=== PATIENT | female | born 1935 | race Caucasian/White ===

== ENCOUNTER 2017-01-02 00:45 | Inpatient (IN) ==
[2017-01-02] MEDS: PROPOFOL 1,000 MG/100 ML BOTTLE IV SCH ×2 (01:00→16:08)
[2017-01-02] MEDS ORDERED: ETOMIDATE 20 MG/10 ML VIAL IV ONE (01:02)
[2017-01-02] MEDS ORDERED: SUCCINYLCHOLINE 200 MG/10 ML VIAL ONE (01:02)
[2017-01-02] MEDS ORDERED: ETOMIDATE 20 MG/10 ML VIAL IV STA (01:13)
[2017-01-02] MEDS ORDERED: SUCCINYLCHOLINE 200 MG/10 ML VIAL IV STA (01:14)
[2017-01-02] MEDS ORDERED: PROPOFOL 1,000 MG/100 ML BOTTLE IV ONE (01:15)
[2017-01-02] MEDS ORDERED: FUROSEMIDE 100 MG/10 ML VIAL ONE (01:20)
[2017-01-02] MEDS ORDERED: MORPHINE 2 MG/1 ML SYRINGE IV PRN (01:34)
[2017-01-02] MEDS ORDERED: ACETAMINOPHEN 325 MG TABLET PO PRN (01:34)
[2017-01-02] MEDS ORDERED: ONDANSETRON 4 MG/2 ML VIAL IV PRN (01:34)
[2017-01-02] MEDS ORDERED: BISACODYL 5 MG TABLET PO PRN (01:34)
[2017-01-02] MEDS ORDERED: FUROSEMIDE 40 MG/4 ML VIAL IV STA (01:40)
--- NOTE | 2017-01-02 01:43 | Hospitalist History & Physical ---
Assessment and Plan (1) Acute on chronic systolic CHF (congestive heart failure) Status: Acute Current Visit: Yes (2) Acute respiratory failure with hypoxia Status: Acute Current Visit: Yes (3) Chronic atrial fibrillation Status: Acute Current Visit: Yes (4) Acute worsening of stage 3 chronic kidney disease Status: Acute Current Visit: Yes (5) IDDM (insulin dependent diabetes mellitus) Status: Acute Current Visit: Yes (6) Hypothyroidism Status: Acute Assessment and plan: Plan: Admit to ICU, continue ventilatory support Continue diuresis for what appears to be acute on chronic systolic CHF Ultrasound Dopplers of lower extremities (initially outside physician had been concerned about a PE however renal function precluded CAT scan) Monitor renal function closely with diuresis, as outside lab work appears to show worsening of her renal function in setting of chronic kidney disease Continue rate controlling medicines for A. fib as tolerated Continue Eliquis Current Visit: Yes History of Present Illness Chief complaint: [place] transfer, resp failure History of present illness: Ms. Alcala is a 81 year old female with chronic atrial fibrillation, chronic anticoagulation, chronic systolic CHF (EF 20% on echo 08/04/16), insulin- dependent diabetes, hypertension, dementia who was transferred from [facility] this evening due to respiratory decompensation. She required intubation in the emergency room. According to the daughter who is at bedside, and who provides the history, she brought the patient to [facility] on Wednesday due to weakness and persistent nausea vomiting. Apparently the patient had been doing better, however this evening she acutely decompensated in terms of her respiratory status. She became very short of breath. There is no report of chest discomfort. She appears to have bilateral pleural effusions on chest x-ray status post intubation. This is also seen on a CT abdomen pelvis which was obtained for abdominal pain at the outside hospital. Review of the outside paperwork from [facility] appears to show treatment for CHF but also dehydration. Apparently she was receiving IV fluids at the time of transfer. Labs also show acute on chronic kidney disease stage III, elevated lactic acid, negative troponin. Home Medications Medication Instructions Recorded Confirmed Type Amiodarone Tab [Cordarone Tab] 200 mg PO DAILY 08/17/16 01/02/17 History Apixaban [Eliquis] 2.5 mg PO Q12H 08/17/16 01/02/17 History Bimatoprost 0.01% Oph Soln 1 drop BOTH EYES BEDTIME 08/17/16 01/02/17 History [Lumigan] Brinzolamide/Brimonidine Tart 1 drop RIGHT EYE BID 08/17/16 01/02/17 History [Simbrinza] Insulin Glargine [Lantus] 25 unit SUBCUT BEDTIME 08/17/16 01/02/17 History Metoprolol Tartrate 25 mg PO BID 08/17/16 01/02/17 History Pantoprazole Tab [Protonix Tab] 40 mg PO DAILY 08/17/16 01/02/17 History Sitagliptin Phosphate [Januvia] 50 mg PO DAILY 08/17/16 01/02/17 History Spironolactone 25 mg PO DAILY 08/17/16 01/02/17 History Timolol Maleate [Timolol 0.5% Oph 1 drop BOTH EYES QAM 08/17/16 01/02/17 History Soln] Furosemide Tab [Lasix Tab] 40 mg PO DAILY #30 tablet 08/19/16 01/02/17 Rx Levofloxacin Tab [Levaquin Tab] 750 mg PO DAILY #5 tablet 08/19/16 01/02/17 Rx Allergies Allergy/AdvReac Type Severity Reaction Status Date / Time iodine Allergy Unknown/Unable Verified 08/18/16 18:30 to obtain latex Allergy Unknown/Unable Verified 08/18/16 18:30 to obtain Medical,Surgical,& Family Hx - Medical History Cardio: History of: Cardiac Dysrhythmia (Chronic atrial fibrillation), CHF ( Cardiomyopathy, EF 20% on echo 08/04/16), Cardiovascular Problems Neurology: History of: Dementia Endocrine: History of: Diabetes Mellitus (IDDM) Renal: History of: Renal Problems (Chronic kidney disease stage III) Hematology: History of: Hematologic Cancer (she has had 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) - Surgical History Abdominal Surgeries: Surgical HX of: Cholecystectomy Reproductive Surgeries: Surgical HX of;: Hysterectomy - Family History Family History: Reports;: Family Cancer Denies;: Family Heart Disease - Social History Smoking Status: Never smoker Frequency of Alcohol Use: None Type of Drug Use: None Marital Status: Unknown Functional capacity: independent ambulation Review of systems: Unable to obtain due to patient intubated Exam - Constitutional Vitals: Period Temp Pulse Resp BP Sys/Rivero Pulse Ox Last 24 Hr 96.9 F-96.9 F 87-98 14-22 117-131/90-98 92 Exam: EXAM: CONSTITUTIONAL: Chronically ill-appearing, intubated, NAD HEENT: NC, AT, ANCA, EOMI CV: Irregular, distant heart sounds no m/g/r RESP: Coarse bilaterally with scattered rhonchi GI: abd soft, NT, ND, +bowel sounds INTEGUMENTARY: no lesions or rash EXTREMITIES: no c/c/e NEURO: Unable to obtain due to patient intubated PSYCH: Unable to obtain due to patient intubated Results - Labs Lab Results: I have reviewed the past 24 hour labs Labs: Outside labs noted - EKG EKG shows: atrial fibrillation - Diagnostic Findings Procedure: Chest x-ray: image reviewed by me, CT Abdomen and Pelvis: report reviewed by me Quality Measures - VTE Contraindication to Pharmacological VTE Prophylaxis: Already on Theraputic Agent , No Prophylaxis Needed
--- NOTE | 2017-01-02 02:03 | Emergency Department Note ---
Rozina Valenzuela Rolonda, am scribing for, and in the presence of, Lupe Rosas DO 01: 31. IRalph Debra, DO, personally performed the services described in this documentation, ascribed by Marco Handy in my presence, and it is both accurate and complete . Arrival - Arrival Chief Complaint: Shortness of Breath ED Nursing Triage Note: pt transferred from [facility] for chf dehydration elevated liver enzymes for further eval Mode of Arrival: Stretcher Limitations: No Limitations Source: Patient, Old Records Reviewed, RN Notes Reviewed Time Seen by Provider: 01/02/17 00:53 - History of Present Illness HPI Narrative: Pt is a 81 y/o female who was transferred from [facility] to ED for further evaluation CHF and possible sepsis. Pt was admitted to [facility] on December 30, for CHF and mild dehydration in which she was given fluids and CXR that showed small right pleural effusion. Pt c/o SOB but denies any pains. Onset (ago): day(s) Consistency: constant Severity: moderate, severe Severity scale (1-10): 9 Quality: fullness Allergies/Adverse Reactions: Allergies Allergy/AdvReac Type Severity Reaction Status Date / Time iodine Allergy Unknown/Unable Verified 08/18/16 18:30 to obtain latex Allergy Unknown/Unable Verified 08/18/16 18:30 to obtain Home Medications: Home Medications Medication Instructions Recorded Confirmed Type Amiodarone Tab [Cordarone Tab] 200 mg PO DAILY 08/17/16 01/02/17 History Apixaban [Eliquis] 2.5 mg PO Q12H 08/17/16 01/02/17 History Bimatoprost 0.01% Oph Soln 1 drop BOTH EYES BEDTIME 08/17/16 01/02/17 History [Lumigan] Brinzolamide/Brimonidine Tart 1 drop RIGHT EYE BID 08/17/16 01/02/17 History [Simbrinza] Insulin Glargine [Lantus] 25 unit SUBCUT BEDTIME 08/17/16 01/02/17 History Metoprolol Tartrate 25 mg PO BID 08/17/16 01/02/17 History Pantoprazole Tab [Protonix Tab] 40 mg PO DAILY 08/17/16 01/02/17 History Sitagliptin Phosphate [Januvia] 50 mg PO DAILY 08/17/16 01/02/17 History Spironolactone 25 mg PO DAILY 08/17/16 01/02/17 History Timolol Maleate [Timolol 0.5% Oph 1 drop BOTH EYES QAM 08/17/16 01/02/17 History Soln] Furosemide Tab [Lasix Tab] 40 mg PO DAILY #30 tablet 08/19/16 01/02/17 Rx Levofloxacin Tab [Levaquin Tab] 750 mg PO DAILY #5 tablet 08/19/16 01/02/17 Rx Review of System - Review of System 12 point system: reviewed and no additional remarkable complaints except as stated - Review of System Constitutional: Absent: chills, diaphoresis, fever, weakness Respiratory: Present: respiratory distress (SOB) Cardiovascular: Absent: chest pain Gastrointestinal: Absent: abdominal pain, nausea, diarrhea Musculoskeletal: Absent: arm pain, neck pain, upper back pain Skin: Absent: rash Neurological: Absent: headache, paresthesias Medical,Surgical,& Family Hx - Medical History Cardio: History of: Cardiovascular Problems (Cardiomyopathy, EF 20% on echo 08/04) Neurology: History of: Dementia Renal: History of: Renal Problems Hematology: History of: Hematologic Cancer (she has had 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) - Surgical History Abdominal Surgeries: Surgical HX of: Cholecystectomy Reproductive Surgeries: Surgical HX of;: Hysterectomy - Family History Family History: Reports;: Family Cancer Denies;: Family Heart Disease - Social History Smoking Status: Never smoker Frequency of Alcohol Use: None Type of Drug Use: None Exam Vital Signs: Vital Signs Temperature 96.9 F L 01/02/17 00:59 Pulse Rate 98 H 01/02/17 00:59 Respiratory Rate 14 01/02/17 01:15 Blood Pressure 117/98 01/02/17 00:59 O2 Sat by Pulse Oximetry 92 L 01/02/17 00:48 - General General appearance: alert, in distress (moderate-severe) - Head Head exam: Present: atraumatic, normocephalic - Eye Eye exam: Present: PERRL, EOMI - ENT ENT exam: Present: mucous membranes moist. Absent: mucous membranes dry - Neck Neck exam: Present: full ROM. Absent: tenderness - Chest Chest inspection: Present: symmetric chest wall rise. Absent: tenderness - Respiratory Respiratory exam: Present: accessory muscle use (belly breathing), respiratory distress. Absent: normal lung sounds bilaterally (diminished sounds bilaterally ) - Cardiovascular Cardiovascular exam: Present: tachycardia - Abdominal Exam Abdominal exam: Present: soft, normal bowel sounds. Absent: tenderness - Extremities Exam Extremities exam: Present: pedal edema (mild; bilateral lower) - Back Exam Back exam: Present: normal inspection, full ROM. Absent: tenderness - Neurological Exam Neurological exam: Present: alert, oriented X3, CN II-XII intact - Psychiatric Psychiatric exam: Present: normal affect, normal mood - Skin Skin exam: Present: warm, dry Course Course Narrative: pt was in respiratory distress and was subsequently intubated. spoke with hospitalist who will admit pt to the unit Results - Diagnostic Findings Procedure: Chest x-ray: image reviewed by me (et tube in good placement, chf noted. ) Disposition Clinical Impression: CHF (congestive heart failure), Respiratory distress Case discussed with: patient, patient's family Disposition: Still a Patient Condition: Guarded Time of Disposition: 02:03
[2017-01-02 03:02] LABS: ABG Base Excess -14.8 MMOL/L (-2.5-2.5); ABG HCO3 13.5 MMOL/L (20-26); ABG Oxygen Saturation 99.8 % (95-100); ABG PCO2 26.1 MM HG (35-48); ABG PH 7.248 (7.35-7.45); ABG TCO2 10.1 MMOL/L (23-27); Allen Test Positive; Pt O2 Delivery Device Ventilator
[2017-01-02] MEDS ORDERED: VECURONIUM 10 MG VIAL IV ONE (03:31)
[2017-01-02] MEDS ORDERED: GLUCAGON 1 MG VIAL IM PRN (03:43)
[2017-01-02] MEDS: PANTOPRAZOLE 40 MG VIAL IV SCH (03:58)
[2017-01-02 04:39] LABS: Basophils % 0.1 % (0.0-0.8); Hematocrit 27.2 VOL% (35.7-47.0); Hemoglobin 9.1 GM/DL (12.0-16.0); Immature Granulocytes % 2.3 %; Immature Granulocytes Absolute 0.25 #; Lymphocytes # 0.4 10*3/uL (1.4-4.0); Lymphocytes % 3.7 % (21.3-54.2); Mean Corpuscular HGB Conc 33.5 GM/DL (32-36); Mean Corpuscular Hemoglobin 35 PG (27-34); Mean Corpuscular Volume 105.8 FL (87-102); Mean Platelet Volume 12.2 FL (9.6-12.0); Monocytes % 9.2 % (1.7-12.7); NRBC # 0.05 10*3/uL; Neutrophils # 9.4 10*3/uL (1.4-7.4); Neutrophils % 84.7 % (38.7-73.9); Platelet Count 104 T/CUMM (130-400); Red Blood Count 2.57 MC/CUMM (3.8-5.5); Red Cell Distribution Width 15.1 % (9.3-17.3)
[2017-01-02] MEDS ORDERED: VECURONIUM 10 MG VIAL IV STA (05:02)
[2017-01-02 05:44] LABS: Lactic Acid 4.3 MMOL/L (0.4-2.0)
[2017-01-02 05:47] LABS: Lymphocytes 6 % (20-55); Macrocytosis 1+; Platelet Estimate Adequate; Polychromasia 1+; Segmented Neutrophils 86 % (50-85); Total Cells Counted 100
[2017-01-02] MEDS: INSULIN REGULAR 100 UNIT/ML SUBCUT SCH ×3 (06:05→18:46)
[2017-01-02 06:39] LABS: Calcium 10.2 MG/DL (8.5-10.1)
[2017-01-02 06:41] LABS: Albumin 3.3 G/DL (3.4-5.0)
[2017-01-02 07:00] LABS: Bilirubin,Total 3.9 MG/DL (0.2-1.0); Total Protein 5.3 G/DL (6.4-8.3); Troponin I Only 0.04 NG/ML (0.00-0.045)
[2017-01-02 07:10] LABS: Osmolality,Calculated 290.5 MOS/KG (273-304); Potassium 4.1 MMOL/L (3.5-5.1)
[2017-01-02] MEDS: ALBUTEROL/IPRATROPIUM 3 ML NEB RESP TX SCH ×3 (07:25→19:24)
[2017-01-02 07:38] LABS: ABG Base Excess -9.2 MMOL/L (-2.5-2.5); ABG HCO3 17.1 MMOL/L (20-26); ABG PCO2 25.4 MM HG (35-48); ABG PH 7.368 (7.35-7.45); ABG TCO2 12.8 MMOL/L (23-27)
[2017-01-02] MEDS ORDERED: FUROSEMIDE 40 MG/4 ML VIAL IV SCH (08:00)
--- NOTE | 2017-01-02 08:42 | Pulmonology Consult Note ---
Assessment and Plan (1) Cardiomyopathy Status: Acute Assessment and plan: The patient apparently has a nonischemic cardiomyopathy with ejection fraction of 20%. She is now on the ventilator at present. Current Visit: Yes (2) Acute on chronic systolic CHF (congestive heart failure) Status: Acute Assessment and plan: The patient had respiratory distress and is now on the ventilator. Her chest x- ray suggest only mild heart failure Current Visit: Yes (3) Acute respiratory failure with hypoxia Status: Acute Assessment and plan: The patient was apparently in respiratory distress and had to be intubated. Her oxygenation is adequate at present. Current Visit: Yes (4) Acute worsening of stage 3 chronic kidney disease Status: Acute Assessment and plan: The patient's creatinine is up to 3 now Current Visit: Yes (5) Chronic atrial fibrillation Status: Acute Assessment and plan: The patient's heart rate is under fair control. Current Visit: Yes (6) IDDM (insulin dependent diabetes mellitus) Status: Acute Assessment and plan: The patient's glucose was 159 this morning. Current Visit: Yes (7) Dementia Status: Chronic Assessment and plan: Patient reportedly has a history of some dementia. Current Visit: No (8) Hypertension Status: Chronic Assessment and plan: The patient has a hypertensive cardiomyopathy and her blood pressure is doing okay at present. Current Visit: No Qualifiers: Hypertension type: essential hypertension Qualified Code(s): I10 - Essential (primary) hypertension (9) Shock liver Status: Acute Assessment and plan: The patient has markedly elevated liver enzymes and this looks like she may have shock liver. Current Visit: Yes History of Present Illness Chief complaint: Ventilator management History of present illness: Ms. Alcala is a 81 year old white female that apparently has a fairly significant cardiomyopathy with chronic atrial fibrillation along with diabetes , hypertension, mild dementia. She was in respiratory distress and transferred from [facility] because of possible heart failure. She had to be intubated and is now on the ventilator in the ICU. The patient apparently had an echocardiogram in July that showed an ejection fraction of 20%. She has significant systolic dysfunction. She apparently is a former smoker. It is unclear if she has had any problems with COPD. She has been on anticoagulation for atrial fibrillation. She appears stable on the ventilator at present. Home Medications Medication Instructions Recorded Confirmed Type Amiodarone Tab [Cordarone Tab] 200 mg PO DAILY 08/17/16 01/02/17 History Apixaban [Eliquis] 2.5 mg PO Q12H 08/17/16 01/02/17 History Bimatoprost 0.01% Oph Soln 1 drop BOTH EYES BEDTIME 08/17/16 01/02/17 History [Lumigan] Brinzolamide/Brimonidine Tart 1 drop RIGHT EYE BID 08/17/16 01/02/17 History [Simbrinza] Insulin Glargine [Lantus] 25 unit SUBCUT BEDTIME 08/17/16 01/02/17 History Metoprolol Tartrate 25 mg PO BID 08/17/16 01/02/17 History Pantoprazole Tab [Protonix Tab] 40 mg PO DAILY 08/17/16 01/02/17 History Sitagliptin Phosphate [Januvia] 50 mg PO DAILY 08/17/16 01/02/17 History Spironolactone 25 mg PO DAILY 08/17/16 01/02/17 History Timolol Maleate [Timolol 0.5% Oph 1 drop BOTH EYES QAM 08/17/16 01/02/17 History Soln] Furosemide Tab [Lasix Tab] 40 mg PO DAILY #30 tablet 08/19/16 01/02/17 Rx Levofloxacin Tab [Levaquin Tab] 750 mg PO DAILY #5 tablet 08/19/16 01/02/17 Rx Allergies Allergy/AdvReac Type Severity Reaction Status Date / Time iodine Allergy Unknown/Unable Verified 08/18/16 18:30 to obtain latex Allergy Unknown/Unable Verified 08/18/16 18:30 to obtain ROS unobtainable: due to endotracheal tube (She is unable to give any history at present.) Exam (Pulmonay) H&P - Constitutional Vitals: Period Temp Pulse Resp BP Sys/Rivero Pulse Ox Last 24 Hr 96.9 F-97.1 F 85-102 14-22 117-143/72-98 92-100 General appearance: normal weight, no acute distress (She is sedated on the ventilator.) - Head Head exam: Present: normal inspection, normocephalic - Eye Eye exam: Present: EOMI. Absent: scleral icterus Pupils: Present: ANCA - ENT ENT exam: Present: other (ET tube in good position) - Neck Neck exam: Absent: lymphadenopathy, thyromegaly - Respiratory Respiratory exam: Present: rhonchi, other (She does have coarse breath sounds bilaterally) - Cardiovascular Cardiovascular exam: Present: irregular rhythm. Absent: gallop, systolic murmur - GI/Abdominal GI/Abdominal exam: Present: hypoactive bowel sounds, soft. Absent: distended, firm, organomegaly, tenderness - Extremities Exam Extremities exam: Present: edema (She does have some mild edema present). Absent: calf tenderness - Neurological Exam Neurological exam: Present: other (She is sedated on the ventilator at present) - Psychiatric Psychiatric exam: Absent: anxious - Skin Skin exam: Present: warm, dry, other (She does have some bruises on her extremities) Medical,Surgical,& Family Hx - Medical History Cardio: History of: Cardiac Dysrhythmia (Chronic atrial fibrillation), CHF ( Cardiomyopathy, EF 20% on echo 08/04/16), Hypertension, Cardiovascular Problems No history of: RI, Pacemaker Neurology: History of: Dementia Endocrine: History of: Diabetes Mellitus (IDDM), Thyroid Disorder Renal: History of: Renal Problems (Chronic kidney disease stage III) Hematology: History of: Hematologic Cancer (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 Her liver tests are very elevated. - Diagnostic Findings Procedure: Chest x-ray: image reviewed by me, report reviewed by me (Chest x- ray shows mild cardiomegaly, there is some haziness in the left base consistent with pleural fluid) Quality Measures - VTE Contraindication to Pharmacological VTE Prophylaxis: Already on Theraputic Agent , No Prophylaxis Needed
[2017-01-02] MEDS ORDERED: SPIRONOLACTONE 25 MG TABLET PO SCH (09:00)
[2017-01-02] MEDS ORDERED: AMIODARONE 200 MG TABLET PO SCH (09:00)
--- NOTE | 2017-01-02 09:23 | Ultrasound Report ---
Exam: Bilateral lower extremity venous Doppler ultrasound Comparison: None Clinical history: Leg swelling Technique: Duplex scan of the lower extremity veins using B-mode/grayscale scaled imaging and Doppler spectral analysis and color flow. Findings: Major venous structures of the lower extremities demonstrate a normal course and caliber. Normal color-flow study and spectral analysis. There is normal compression and augmentation of bilateral common femoral, superficial femoral and popliteal veins. The proximal bilateral greater saphenous veins appear to be patent. Impression: No evidence to suggest deep venous thrombosis within either lower extremity. Ultrasound images were captured and stored. PROCEDURE INTERPRETED AT [facility] DEPARTMENT OF RADIOLOGY Final Report Signed by: Dr. Anitha Holland
[2017-01-02] MEDS: METOPROLOL TARTRATE 25 MG TABLET PO SCH ×2 (09:35→20:44)
[2017-01-02] MEDS: APIXABAN 2.5 MG TABLET PO SCH ×2 (09:36→20:55)
[2017-01-02] MEDS: TIMOLOL 0.5% OPH SOLN 5 ML BOTTLE BOTH EYES SCH (09:36)
--- NOTE | 2017-01-02 09:47 | XRay Report ---
Exam: XR chest 1V Date: 01/02/2017 12:58 AM Comparison: 12/30/2016 Indication: Endotracheal tube placement Technique:[Portable AP sitting chest] Findings: Stable cardiomegaly with progressive diffuse parenchymal findings and small pleural effusions. The endotracheal tube is in satisfactory position. Osteopenia with degenerative changes and stable mediastinum. Prior cholecystectomy. Impression: Endotracheal tube in satisfactory position. Moderate CHF/pneumonitis with small pleural effusions. PROCEDURE INTERPRETED AT [facility] DEPARTMENT OF RADIOLOGY Final Report Signed by: Dr. Anitha Holland
--- NOTE | 2017-01-02 10:15 | XRay Report ---
Portable chest Date: 01/02/2017 Clinical history: Respiratory failure Comparison: 01/02/2017 Technique: Portable AP sitting chest Findings: Stable cardiomegaly and endotracheal tube. Insertion nasogastric tube seen entering the stomach. Persistent diffuse parenchymal findings which appear minimally improved with smaller pleural effusions. Stable mediastinum and osseous structures. Impression: Endotracheal tube and nasogastric tube in satisfactory position. Improved pulmonary edema/infiltration with smaller pleural effusions. PROCEDURE INTERPRETED AT [facility] DEPARTMENT OF RADIOLOGY Final Report Signed by: Dr. Anitha Holland
--- NOTE | 2017-01-02 10:21 | EKG Report ---
Stationary ECG Study [facility] ER Test Date: 01/02/2017 12:57:18 AM Pat Name: LIZA SO Department: Room: 128 Gender: F Supervisor [employer] Generating: : 1935 Requested by: Lupe Rosas Order Number: [id number] Reading MD: ROBERTO BOWEN Intervals [place] Rate: 88 P: 999 TN: 0 QRS: 119 QRSD: 184 T: -35 QT: 475 QTc: 520 Interpretive Statements ATRIAL FIBRILLATION RIGHT AXIS LEFT BUNDLE BRANCH BLOCK (OLD) Electronically Signed On 01-03-17 10:37:37 CDT by ROBERTO BOWEN [email or web address]
--- NOTE | 2017-01-02 13:14 | Cardiology Consult Note ---
Assessment and Plan (1) Acute respiratory failure with hypoxia Status: Acute Assessment and plan: Ventilator weaning as per pulmonary medicine. The etiology of this is unclear, but she does have a severe cardiomyopathy which likely plays a role. It is noted that the patient is DNR at this time. Current Visit: Yes (2) Acute renal failure superimposed on stage 4 chronic kidney disease Status: Acute Assessment and plan: She has severe renal insufficiency which complicates management considerably. Current Visit: Yes (3) Elevated liver function tests Status: Acute Assessment and plan: She has marked elevation of liver function test. The etiology of this is unclear. Current Visit: Yes (4) Cardiomyopathy Status: Acute Assessment and plan: She has a known severe cardiomyopathy with ejection fraction of around 20%. Continue supportive care for now. Given her severe renal insufficiency, respiratory failure, severe liver function abnormalities, and severe cardiomyopathy, her prognosis is poor. Current Visit: Yes (5) Chronic atrial fibrillation Status: Acute Assessment and plan: Her atrial fibrillation rate appears to be adequately controlled at this time. Current Visit: Yes (6) Hypothyroidism Status: Resolved Current Visit: Yes (7) Diabetes mellitus Status: Chronic Current Visit: No Qualifiers: Diabetes mellitus type: type 2 Chronic kidney disease stage: stage 3 ( moderate) (8) Hypertension Status: Chronic Assessment and plan: This appears to be well controlled. Current Visit: No Qualifiers: Hypertension type: essential hypertension Qualified Code(s): I10 - Essential (primary) hypertension History of Present Illness - Consult Narrative History of present illness: Ms. Alcala is a 81 year old female who has a history of multiple medical problems. She is routinely followed by Dr. Dye. She has a history of atrial fibrillation on chronic anticoagulation, severe cardiomyopathy with ejection fraction of around 20%, as well as moderate mitral regurgitation. She also has severe chronic renal insufficiency, insulin-dependent diabetes, hypertension, and dementia. She was transferred from [facility] overnight with respiratory failure. She apparently had been admitted there on Wednesday due to weakness and persistent nausea and vomiting. Shortly after transfer here she was intubated in the emergency room. At the time I am seeing her she is intubated and sedated I cannot get any history from her. History is obtained from the chart and the nursing staff. The patient appears to be in atrial fibrillation with a controlled ventricular response. Laboratory tests since admission show a significant anemia which is macrocytic suggesting potential B12 or folate deficiency. She also has marked liver function test abnormalities with a bilirubin of 3.9 and marked elevation of transaminases. Her BNP is also 986. Her creatinine is 3.0 with a estimated creatinine clearance of 15 mL/min. Current Medications Acetaminophen (Tylenol Tab) 650 mg PO Q4H PRN PRN Reason: Fever, Headache, Mild Pain Hydrocodone Bitart/Acetaminophen ([place] 5-325) 1 tablet PO Q4H PRN PRN Reason: Pain Mild (1-3) Albuterol/Ipratropium (Duoneb) 3 ml RESP TX RT Q6H [facility]OD[facility] Last Admin: 01/02/17 12:36 Dose: 3 ml Amiodarone HCl (Cordarone Tab) 200 mg PO DAILY [facility] Apixaban (Eliquis) 2.5 mg PO Q12H EL[facility] Last Admin: 01/02/17 09:36 Dose: 2.5 mg Bimatoprost (Lumigan) 1 drop BOTH EYES BEDTIME [facility] Bisacodyl (Dulcolax Tab) 10 mg PO DAILY PRN PRN Reason: Constipation Dextrose/Water (D50) 25 gm IV PRN PRN PRN Reason: Hypoglycemia with IV access Furosemide (Lasix Inj) 40 mg IV BID DIURETIC [facility] Glucagon () 1 mg IM PRN PRN PRN Reason: Hypoglycemia w/o IV access Propofol (Diprivan) 1,000 mg in 100 mls @ 2.041 mls/hr IV TITRATE ELODIA; 5 MCG/KG /MIN PRN Reason: Protocol Last Titration: 01/02/17 03:40 Dose: 15 mcg/kg/min, 6.12 mls/hr Insulin Glargine (Lantus) 25 unit SUBCUT BEDTIME [facility] Insulin Human Regular (Humulin R) 0 unit SUBCUT Q6HR [facility] PRN Reason: Protocol Last Admin: 01/02/17 06:05 Dose: Not Given Iron/Minerals/Multivitamins (Centrum Liquid) 15 ml PO DAILY [facility] Metoprolol Tartrate (Lopressor Tab) 25 mg PO BID [facility] Last Admin: 01/02/17 09:35 Dose: 25 mg Morphine Sulfate () 2 mg IV Q4H PRN PRN Reason: Pain Severe (8-10) Non-Formulary Medication (Brinzolamide/Brimonidine Tart [Simbrinza]) 1 drop RIGHT EYE BID [facility] Ondansetron HCl (Zofran Inj) 4 mg IV Q4H PRN PRN Reason: Nausea Pantoprazole Sodium (Protonix Inj) 40 mg IV Q24H [facility] Last Admin: 01/02/17 03:58 Dose: 40 mg Timolol Maleate (Timoptic 0.5%) 1 drop BOTH EYES QAM [facility] Last Admin: 01/02/17 09:36 Dose: 1 drop CC: Cierra Walker MD - Home Medications and Allergies Home Medications: Home Medications Medication Instructions Recorded Confirmed Type Amiodarone Tab [Cordarone Tab] 200 mg PO DAILY 08/17/16 01/02/17 History Apixaban [Eliquis] 2.5 mg PO Q12H 08/17/16 01/02/17 History Bimatoprost 0.01% Oph Soln 1 drop BOTH EYES BEDTIME 08/17/16 01/02/17 History [Lumigan] Brinzolamide/Brimonidine Tart 1 drop RIGHT EYE BID 08/17/16 01/02/17 History [Simbrinza] Insulin Glargine [Lantus] 25 unit SUBCUT BEDTIME 08/17/16 01/02/17 History Metoprolol Tartrate 25 mg PO BID 08/17/16 01/02/17 History Pantoprazole Tab [Protonix Tab] 40 mg PO DAILY 08/17/16 01/02/17 History Sitagliptin Phosphate [Januvia] 50 mg PO DAILY 08/17/16 01/02/17 History Spironolactone 25 mg PO DAILY 08/17/16 01/02/17 History Timolol Maleate [Timolol 0.5% Oph 1 drop BOTH EYES QAM 08/17/16 01/02/17 History Soln] Furosemide Tab [Lasix Tab] 40 mg PO DAILY #30 tablet 08/19/16 01/02/17 Rx Levofloxacin Tab [Levaquin Tab] 750 mg PO DAILY #5 tablet 08/19/16 01/02/17 Rx Allergies/Adverse Reactions: Allergies Allergy/AdvReac Type Severity Reaction Status Date / Time iodine Allergy Unknown/Unable Verified 08/18/16 18:30 to obtain latex Allergy Unknown/Unable Verified 08/18/16 18:30 to obtain 12 point system: reviewed and no additional remarkable complaints except as stated Medical,Surgical,& Family Hx - Medical History Cardio: History of: Cardiac Dysrhythmia (Chronic atrial fibrillation), CHF ( Cardiomyopathy, EF 20% on echo 08/04/16), Hypertension, Cardiovascular Problems No history of: NE, Pacemaker Neurology: History of: Dementia Endocrine: History of: Diabetes Mellitus (IDDM), Thyroid Disorder Renal: History of: Renal Problems (Chronic kidney disease stage III) Hematology: History of: Hematologic Cancer (she has had 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) - Surgical History Abdominal Surgeries: Surgical HX of: Cholecystectomy Reproductive Surgeries: Surgical HX of;: Hysterectomy - Family History Family History: Reports;: Family Cancer, Family Diabetes, Family Hematology, Family Hypertension Denies;: Family Heart Disease, Family Psychiatric Problems, Family Stroke - Social History Smoking Status: Former smoker Frequency of Alcohol Use: None Type of Drug Use: None Physical Examination Vital Signs Temp Pulse Resp BP Pulse Ox 96.9 F L 87 14 131/90 92 L 01/02/17 00:48 01/02/17 00:48 01/02/17 00:48 01/02/17 00:48 01/02/17 00:48 Other: General: Frail, elderly, chronically ill-appearing intubated and sedated in the CCU HEENT: Normocephalic, atraumatic Neck: Supple Neck, Midline Trachea Cardiac: Irregular Rhythm, 2 to 3/6 systolic murmur, no gallop, no rub Lungs: Coarse breath sounds per the ventilator Neuro: Difficult to assess as the patient is intubated and sedated Abdomen: Soft, Active Bowel Sounds, No Masses, No Pulsations/Bruits Skin: Normal color, no rash Extremities: No Clubbing, No Cyanosis, No Edema, Normal Upper Extr. Pulses Musculoskeletal: No acute abnormality noted Psychiatric: Unable to assess as the patient is intubated and sedated Result/EKG - Labs CBC & BMP: 01/02/17 04:08 01/02/17 04:08 Lab Results: I have reviewed the past 24 hour labs Labs: Laboratory Results - last 24 hr 01/02/17 01/02/17 01/02/17 02:43 04:08 04:08 WBC 11.0 RBC 2.57 L Hgb 9.1 L Hct 27.2 L MCV 105.8 H MCH 35 H MCHC 33.5 RDW 15.1 Plt Count 104 L MPV 12.2 H Neut % (Auto) 84.7 H Lymph % (Auto) 3.7 L Hanson % (Auto) 9.2 Eos % (Auto) 0.0 Baso % (Auto) 0.1 Neut # (Auto) 9.4 H Lymph # (Auto) 0.4 L Hanson # (Auto) 1.0 H Eos # (Auto) 0.0 Baso # (Auto) 0.0 Total Counted 100 Immature Gran % 2.3 Nucleated RBC % 0.5 Immature Gran # 0.25 Segmented Neutrophils 86 H Lymphocytes 6 L Monocytes 8 Nucleated RBCs # 0.05 Platelet Estimate Adequate Polychromasia 1+ Macrocytosis 1+ ABG pH 7.248 L ABG pCO2 26.1 L ABG pO2 384.0 H ABG HCO3 13.5 L ABG Total CO2 10.1 L ABG O2 Saturation 99.8 ABG Base Excess -14.8 L FiO2 100.00 Sodium 139 Potassium 4.1 Chloride 105 Carbon Dioxide 16 L Anion Gap 22.1 H BUN 43 H Creatinine 3.00 H GFR Calculation 15 BUN/Creatinine Ratio 14.00 Glucose 159 H POC Glucose Calculated Osmolality 290.5 Lactic Acid 4.3 H Calcium 10.2 H Magnesium 2.0 Total Bilirubin 3.90 H AST 2074 H ALT 1059 H Alkaline Phosphatase 105 Troponin I 0.040 B-Natriuretic Peptide Total Protein 5.3 L Albumin 3.3 L Globulin 2.0 L Albumin/Globulin Ratio 1.6 01/02/17 01/02/17 01/02/17 04:08 06:02 07:32 WBC RBC Hgb Hct MCV MCH MCHC RDW Plt Count MPV Neut % (Auto) Lymph % (Auto) Hanson % (Auto) Eos % (Auto) Baso % (Auto) Neut # (Auto) Lymph # (Auto) Hanson # (Auto) Eos # (Auto) Baso # (Auto) Total Counted Immature Gran % Nucleated RBC % Immature Gran # Segmented Neutrophils Lymphocytes Monocytes Nucleated RBCs # Platelet Estimate Polychromasia Macrocytosis ABG pH 7.368 ABG pCO2 25.4 L ABG pO2 110.0 H ABG HCO3 17.1 L ABG Total CO2 12.8 L ABG O2 Saturation 98.0 ABG Base Excess -9.2 L FiO2 Sodium Potassium Chloride Carbon Dioxide Anion Gap BUN Creatinine GFR Calculation BUN/Creatinine Ratio Glucose POC Glucose 146 H Calculated Osmolality Lactic Acid Calcium Magnesium Total Bilirubin AST ALT Alkaline Phosphatase Troponin I B-Natriuretic Peptide 986 H Total Protein Albumin Globulin Albumin/Globulin Ratio 01/02/17 11:47 WBC RBC Hgb Hct MCV MCH MCHC RDW Plt Count MPV Neut % (Auto) Lymph % (Auto) Hanson % (Auto) Eos % (Auto) Baso % (Auto) Neut # (Auto) Lymph # (Auto) Hanson # (Auto) Eos # (Auto) Baso # (Auto) Total Counted Immature Gran % Nucleated RBC % Immature Gran # Segmented Neutrophils Lymphocytes Monocytes Nucleated RBCs # Platelet Estimate Polychromasia Macrocytosis ABG pH ABG pCO2 ABG pO2 ABG HCO3 ABG Total CO2 ABG O2 Saturation ABG Base Excess FiO2 Sodium Potassium Chloride Carbon Dioxide Anion Gap BUN Creatinine GFR Calculation BUN/Creatinine Ratio Glucose POC Glucose 207 H Calculated Osmolality Lactic Acid Calcium Magnesium Total Bilirubin AST ALT Alkaline Phosphatase Troponin I B-Natriuretic Peptide Total Protein Albumin Globulin Albumin/Globulin Ratio - EKG EKG results: interpreted by me Quality Measures - VTE Contraindication to Pharmacological VTE Prophylaxis: Already on Theraputic Agent , No Prophylaxis Needed
--- NOTE | 2017-01-02 13:27 | Hospitalist Progress Note ---
Assessment and Plan (1) Acute respiratory failure with hypoxia Status: Acute Assessment and plan: Intubated and Dr. Howell is managing the vent Current Visit: Yes (2) Acute on chronic systolic CHF (congestive heart failure) Status: Acute Assessment and plan: lasix 80 mg IV bid, no coreg for now Current Visit: Yes (3) Chronic atrial fibrillation Status: Acute Assessment and plan: cont amiodarone and eliquis Current Visit: Yes (4) IDDM (insulin dependent diabetes mellitus) Status: Acute Assessment and plan: ISC, cont lantus Current Visit: Yes (5) Cardiomyopathy Status: Acute Assessment and plan: Severe CM with ef of 20%, DNR even though intubated. Current Visit: Yes (6) Shock liver Status: Acute Assessment and plan: Elevated liver enzymes most likely due to shock liver, may be due to hypotensive event Current Visit: Yes (7) Acute renal failure superimposed on stage 4 chronic kidney disease Status: Acute Assessment and plan: start bicarb, monitor on diuretics, abdomen us Current Visit: Yes Hospitalist: Subjective Interval history: patient intubated and sedated, Dr. Howell is managing the vent Exam - Constitutional Vitals: Period Temp Pulse Resp BP Sys/Rivero Pulse Ox Last 24 Hr 96.9 F-97.6 F 83-102 8-22 117-143/63-98 92-100 Exam: Heart Rate-[IRR] Lungs-[bilateral crackles ] GI-[+bs soft, NT] Ext-[extensive edema worse on left leg Neuro sedated and intubated psych agitated General [no acute distress] Results - Labs CBC & BMP: 01/02/17 04:08 01/02/17 04:08 Lab Results: I have reviewed the past 24 hour labs Labs: blood cx no growth - Diagnostic Findings Procedure: Chest x-ray: report reviewed by me (pul edema ), Ultrasound: report reviewed by me (no dvt) Quality Measures - VTE Contraindication to Pharmacological VTE Prophylaxis: Already on Theraputic Agent , No Prophylaxis Needed
[2017-01-02 14:46] LABS: Folate > 24.0 NG/ML (5.4-24.0); Vitamin B12 > 2000 PG/ML (211-911)
--- NOTE | 2017-01-02 14:54 | Ultrasound Report ---
Exam: US abdomen Date: 01/02/2017 1:42 PM Comparison: None Indication: Shock liver with elevated bilirubin Technique:[Multiple real-time scans were obtained of the abdomen. Color flow scans obtained. Ultrasound images were captured and stored.] Findings: Prior cholecystectomy. CBD is normal in size measuring 6 mm. The liver is normal in size with no masses. The spleen has an unremarkable appearance with splenic index of 64. Right kidney measures 92 mm length. Left kidney measures 101 mm in length. Minimal right perinephric fluid. The visualized pancreas and aorta have an unremarkable appearance with color flow documented in the IVC. Portions of the pancreas and aortic bifurcation obscured by bowel gas. Minimal ascites with bilateral pleural effusions. Impression: Status post cholecystectomy. No obvious liver pathology is identified. Prior cholecystectomy with normal-sized CBD. Cortical loss in the kidneys with nonspecific minimal right perinephric fluid. Inhomogeneous echogenicity in the kidneys which represent possible medical renal disease. Minimal ascites and bilateral pleural effusions. Portions of the pancreas and aorta are obscured by bowel gas. The Ultrasound images were captured and stored. PROCEDURE INTERPRETED AT [facility] DEPARTMENT OF RADIOLOGY Final Report Signed by: Dr. Anitha Holland
[2017-01-02] MEDS: SODIUM BICARBONATE 650 MG TABLET PO SCH ×2 (16:04→20:55)
[2017-01-02] MEDS: MULTIVITAMIN LIQUID (CENTRUM) 60 ML BOTTLE PO SCH (16:04)
[2017-01-02] MEDS: FUROSEMIDE 40 MG/4 ML VIAL IV SCH (16:04)
[2017-01-02] MEDS: SIMBRINZA RIGHT EYE SCH ×2 (16:06→20:55)
[2017-01-02] MEDS: BIMATOPROST 0.01% OPH SOLN 2.5 ML BOTTLE BOTH EYES SCH (20:55)
[2017-01-02] MEDS ORDERED: INSULIN GLARGINE 100 UNIT/ML SUBCUT SCH (21:00)
[2017-01-03] MEDS: ALBUTEROL/IPRATROPIUM 3 ML NEB RESP TX SCH ×4 (00:28→19:55)
[2017-01-03] MEDS: INSULIN REGULAR 100 UNIT/ML SUBCUT SCH ×5 (00:50→23:34)
[2017-01-03] MEDS: PROPOFOL 1,000 MG/100 ML BOTTLE IV SCH (01:21)
[2017-01-03 03:15] LABS: ABG Base Excess -2.1 MMOL/L (-2.5-2.5); ABG HCO3 22.7 MMOL/L (20-26); ABG Oxygen Saturation 99.9 % (95-100); ABG PCO2 28.8 MM HG (35-48); ABG PH 7.462 (7.35-7.45); ABG TCO2 18.2 MMOL/L (23-27); Allen Test Positive; Pt O2 Delivery Device Ventilator
[2017-01-03] MEDS: PANTOPRAZOLE 40 MG VIAL IV SCH (03:30)
[2017-01-03 03:40] LABS: Basophils % 0.1 % (0.0-0.8); Hematocrit 35.7 VOL% (35.7-47.0); Hemoglobin 11.9 GM/DL (12.0-16.0); Immature Granulocytes % 0.9 %; Immature Granulocytes Absolute 0.17 #; Lymphocytes # 0.6 10*3/uL (1.4-4.0); Lymphocytes % 3.4 % (21.3-54.2); Mean Corpuscular HGB Conc 33.3 GM/DL (32-36); Mean Corpuscular Hemoglobin 31 PG (27-34); Mean Corpuscular Volume 93.2 FL (87-102); Mean Platelet Volume 11.8 FL (9.6-12.0); Monocytes # 0.7 10*3/uL (0.11-0.8); Monocytes % 3.9 % (1.7-12.7); NRBC # 0.05 10*3/uL; Neutrophils # 16.5 10*3/uL (1.4-7.4); Neutrophils % 91.7 % (38.7-73.9); Platelet Count 166 T/CUMM (130-400); Red Blood Count 3.83 MC/CUMM (3.8-5.5); Red Cell Distribution Width 16.4 % (9.3-17.3); White Blood Count 18.1 T/CUMM (4-12)
[2017-01-03 04:22] LABS: Alanine Aminotransferase 1423 U/L (13-56); Albumin 2.7 G/DL (3.4-5.0); Alkaline Phosphatase 88 U/L (45-117); Aspartate Amino Transferase > 2002 U/L (0-37); Blood Urea Nitrogen 63 MG/DL (7-18); Calcium 9.3 MG/DL (8.5-10.1); Glucose 157 MG/DL (74-106); Osmolality,Calculated 301.3 MOS/KG (273-304); Potassium 3.6 MMOL/L (3.5-5.1); Sodium 141 MMOL/L (136-145); Total Protein 4.3 G/DL (6.4-8.3)
[2017-01-03 05:17] LABS: Band Neutrophils 3 % (0-10); Lymphocytes 3 % (20-55); Segmented Neutrophils 94 % (50-85); Total Cells Counted 100
[2017-01-03 05:18] LABS: Anisocytosis 1+
[2017-01-03 05:19] LABS: Ovalocytes Few; Platelet Estimate Normal
--- NOTE | 2017-01-03 07:52 | Pulmonology Progress Note ---
Pulmonary - PN: Subj Interval history: The patient is an 81-year-old white lady that has a significant cardiomyopathy with chronic atrial fibrillation. She is a diabetic with hypertension and apparently has some dementia. She had respiratory failure and is on the ventilator. She has significant elevation in hepatic enzymes. She is also developed worsening renal failure. She is reasonably stable on the ventilator at present. Her x-ray looks a little better and her oxygenation is okay. Exam (Progress Note) - Constitutional Vitals: Period Temp Pulse Resp BP Sys/Rivero Pulse Ox Last 24 Hr 97.3 F-99.4 F 70-102 8-25 91-135/42-77 99-100 Exam: General appearance: normal weight, no acute distress (She is sedated on the ventilator. She has stable vital signs at present.) - Head Head exam: Present: normal inspection, normocephalic - Eye Eye exam: Present: EOMI. Absent: scleral icterus Pupils: Present: ANCA - ENT ENT exam: Present: other (ET tube in good position) - Neck Neck exam: Absent: lymphadenopathy, thyromegaly - Respiratory Respiratory exam: Present: Her lungs have fairly good breath sounds and she is moving air reasonably well with just minimal rhonchi. - Cardiovascular Cardiovascular exam: Present: irregular rhythm but her heart rate is controlled. Absent: gallop, systolic murmur - GI/Abdominal GI/Abdominal exam: Present: hypoactive bowel sounds, soft. Absent: distended, firm, organomegaly, tenderness - Extremities Exam Extremities exam: Present: edema (She does have some mild edema present). Absent: calf tenderness - Neurological Exam Neurological exam: Present: other (She is sedated on the ventilator at present) - Psychiatric Psychiatric exam: Absent: anxious - Skin Skin exam: Present: warm, dry, other (She does have some bruises on her extremities) Results - Labs CBC & BMP: 01/03/17 02:44 01/03/17 02:44 Labs: The PO2 is 162 with a PCO2 of 28 and a pH of 7.46 - Diagnostic Findings Procedure: Chest x-ray: image reviewed by me, report reviewed by me (Her chest x -ray shows mild cardiomegaly with minimal changes in the bases.) Assessment and Plan (1) Cardiomyopathy Status: Acute Assessment and plan: The patient apparently has a nonischemic cardiomyopathy with ejection fraction of 20%. She is now on the ventilator at present. Her chest x-ray has shown mild CHF but is better. Current Visit: Yes (2) Acute on chronic systolic CHF (congestive heart failure) Status: Acute Assessment and plan: The patient had respiratory distress and is now on the ventilator. Her chest x- ray suggest only mild heart failure. Her oxygenation is stable today. Current Visit: Yes (3) Acute respiratory failure with hypoxia Status: Acute Assessment and plan: The patient was apparently in respiratory distress and had to be intubated. Will adjust her ventilator. Current Visit: Yes (4) Acute worsening of stage 3 chronic kidney disease Status: Acute Assessment and plan: The patient's creatinine is up to 3 now. Creatinine is unchanged so far. Current Visit: Yes (5) Chronic atrial fibrillation Status: Acute Assessment and plan: The patient's heart rate is under fair control. Current Visit: Yes (6) IDDM (insulin dependent diabetes mellitus) Status: Acute Assessment and plan: The patient's glucose was 172 this morning. Current Visit: Yes (7) Dementia Status: Chronic Assessment and plan: Patient reportedly has a history of some dementia. She has mainly been sedated on the ventilator. Current Visit: No (8) Hypertension Status: Chronic Assessment and plan: The patient has a hypertensive cardiomyopathy and her blood pressure is doing okay at present. Current Visit: No Qualifiers: Hypertension type: essential hypertension Qualified Code(s): I10 - Essential (primary) hypertension (9) Shock liver Status: Acute Assessment and plan: The patient has markedly elevated liver enzymes and this looks like she may have shock liver. Her liver enzymes are still very high but her ultrasound looks okay. She does not appear to be tender. Current Visit: Yes
[2017-01-03] MEDS: FUROSEMIDE 40 MG/4 ML VIAL IV SCH ×2 (09:18→15:03)
[2017-01-03] MEDS: SIMBRINZA RIGHT EYE SCH ×2 (09:21→20:05)
[2017-01-03] MEDS: SODIUM BICARBONATE 650 MG TABLET PO SCH ×3 (09:23→20:07)
[2017-01-03] MEDS: METOPROLOL TARTRATE 25 MG TABLET PO SCH ×2 (09:23→20:07)
[2017-01-03] MEDS: MULTIVITAMIN LIQUID (CENTRUM) 60 ML BOTTLE PO SCH (09:23)
[2017-01-03] MEDS: APIXABAN 2.5 MG TABLET PO SCH ×2 (09:23→20:07)
[2017-01-03] MEDS: TIMOLOL 0.5% OPH SOLN 5 ML BOTTLE BOTH EYES SCH (10:17)
--- NOTE | 2017-01-03 10:18 | XRay Report ---
Portable chest Date: 01/03/2017 Clinical history: CHF Comparison: 01/02/2017 Technique: Portable AP sitting chest Findings: Stable cardiomegaly and supportive devices. Calcification in the mitral valve annulus. Progressive diffuse parenchymal findings especially in the lower lung zones with minimally larger small pleural effusions. Stable mediastinum and osseous structures. Impression: Progressive CHF/bilateral pneumonia with increased atelectasis and larger small pleural effusions. The supportive devices are in satisfactory position. PROCEDURE INTERPRETED AT [facility] DEPARTMENT OF RADIOLOGY Final Report Signed by: Dr. Anitha Holland
--- NOTE | 2017-01-03 10:21 | Hospitalist Progress Note ---
Assessment and Plan (1) Acute respiratory failure with hypoxia Status: Acute Assessment and plan: Intubated and Dr. Howell is managing the vent. will add meropenem to cover pneumonia, hospital acquired Current Visit: Yes (2) Acute on chronic systolic CHF (congestive heart failure) Status: Acute Assessment and plan: decrease lasix 40 mg IV bid, cont metoprolol, avoid humberto or arb, ef 20% Current Visit: Yes (3) Chronic atrial fibrillation Status: Acute Assessment and plan: cont amiodarone and eliquis Current Visit: Yes (4) IDDM (insulin dependent diabetes mellitus) Status: Acute Assessment and plan: ISC, BS not controlled increase lantus Current Visit: Yes (5) Cardiomyopathy Status: Acute Assessment and plan: Severe CM with ef of 20%, DNR even though intubated. Current Visit: Yes (6) Shock liver Status: Acute Assessment and plan: Elevated liver enzymes most likely due to shock liver, may be due to hypotensive event, cont to rise, check hepatitis and acetaminophen level Current Visit: Yes (7) Acute renal failure superimposed on stage 4 chronic kidney disease Status: Acute Assessment and plan: cont bicarb, cont to monitor, chronic renal dz on us Current Visit: Yes (8) Leukocytosis Status: Acute Assessment and plan: meropenem, didnt suspect pneumonia, but wbc rising, bc negative, ua Current Visit: Yes Hospitalist: Subjective Interval history: Good urine output, no high tube feeding residual, spoke with son today, Exam - Constitutional Vitals: Period Temp Pulse Resp BP Sys/Rivero Pulse Ox Last 24 Hr 97.3 F-99.4 F 70-112 10-25 91-130/42-72 98-100 Exam: Heart Rate-[IRR] Lungs-[clear but diminished. GI-[+bs soft, NT] Ext-[extensive edema no improvement Neuro sedated and intubated psych agitated when touched General [no acute distress] Results - Labs CBC & BMP: 01/03/17 02:44 01/03/17 02:44 Lab Results: I have reviewed the past 24 hour labs Labs: blood cx times 2 negative - Diagnostic Findings Procedure: Chest x-ray: report reviewed by me (pul edema and atelectasis ), Ultrasound: report reviewed by me (renal echogenicity c/w renal disease ) Quality Measures - VTE Contraindication to Pharmacological VTE Prophylaxis: Already on Theraputic Agent , No Prophylaxis Needed
--- NOTE | 2017-01-03 10:29 | EKG Report ---
Stationary ECG Study [facility] Test Date: 01/03/2017 10:26:50 AM Pat Name: LIZA SO Department: Room: 128 Gender: F [employer] Supervisor: : [id number] Requested by: Cierra Barrett Order Number: [id number] Reading MD: ROBERTO BOWEN Intervals [place] Rate: 101 P: 999 UT: 0 QRS: 87 QRSD: 166 T: 227 QT: 418 QTc: 476 Interpretive Statements ATRIAL FIBRILLATION WITH RAPID VENTRICULAR RESPONSE LEFT BUNDLE BRANCH BLOCK Electronically Signed On 01-04-17 10:20:40 CDT by ROBERTO BOWEN [email or web address]
--- NOTE | 2017-01-03 10:34 | ECHO Report ---
Alee Alcala Exam Date: 01/02/2017 10:51 Referring Physician: Technologist: Brisa Warner Age: 81 Ht (in): 64 Wt (lb): 128 Gender: F Exam Location: [facility] Echo Indications: Chronic A Fib, hypothyroidism, Acute CHF, resp distress, IDDM, vent BP: 122 / 79 HR: 91 Rhythm: Atrial fibrillation Technical Quality: Technically difficult study IMPRESSIONS Severely depressed ejection fraction approximately 15%. Diastolic parameters are incomplete as the patient is in atrial fibrillation. Four-chamber cardiac enlargementMild mitral valve regurgitation, central jet. Tricuspid regurgitation velocities suggest a RVSP of 36 mmHg plus the right atrial pressure. Trace pulmonary valve regurgitation. No pericardial effusion. MEASUREMENTS (Male / Female) Normal Values 2D ECHO LV Diastolic Diameter PLAX 4.6 cm 4.2 - 5.9 / 3.9 - 5.3 cm LV Systolic Diameter PLAX 4.0 cm LV Fractional Shortening PLAX 14.5 % IVS Diastolic Thickness 1.1 cm 0.6 - 1.0 / 0.6 - 0.9 cm LVPW Diastolic Thickness 1.2 cm 0.6 - 1.0 / 0.6 - 0.9 cm RV Internal Dim ED PLAX 1.9 cm Aortic Root Diameter 2.3 cm LA Systolic Diameter LX 4.7 cm 3.0 - 4.0 / 2.7 - 3.8 cm DOPPLER Mitral E to A Ratio 2.4 TR Peak Velocity 299.0 cm/s TR Peak Gradient 35.8 mmHg FINDINGS Left Ventricle Mildly increased left ventricular cavity size. Severely depressed ejection fraction approximately 15%. Diastolic parameters are incomplete as the patient is in atrial fibrillation. Right Ventricle Mildly increased right ventricular size. Right Atrium Moderately increased right atrial size. Left Atrium Moderately increased left atrial size. Mitral Valve Moderate mitral annular calcification. Mild mitral valve regurgitation, central jet. Aortic Valve Mild aortic valve sclerosis without stenosis or regurgitation. Mild aortic valve regurgitation. Tricuspid Valve Morphologically normal tricuspid valve. Moderate tricuspid valve regurgitation. Tricuspid regurgitation velocities suggest a RVSP of 36 mmHg plus the right atrial pressure. Pulmonic Valve Morphologically normal pulmonic valve. Trace pulmonary valve regurgitation. Pericardium No pericardial effusion. Aorta Normal size aortic root and proximal ascending aorta. Patti Cruz (Electronically Signed) Final Date: 03 January 2017 10:33
[2017-01-03] MEDS ORDERED: MEROPENEM 1,000 MG in SODIUM CHLORIDE 0.9% 100 ML IV SCH (10:45)
--- NOTE | 2017-01-03 11:29 | Cardiology Progress Note ---
Assessment and Plan (1) Acute respiratory failure with hypoxia Status: Acute Assessment and plan: Ventilator weaning as per pulmonary medicine. The etiology of this is unclear, but she does have a severe cardiomyopathy which likely plays a role. It is noted that the patient is DNR at this time. Current Visit: Yes (2) Acute renal failure superimposed on stage 4 chronic kidney disease Status: Acute Assessment and plan: She has severe renal insufficiency which complicates management considerably. Current Visit: Yes (3) Elevated liver function tests Status: Acute Assessment and plan: She has marked elevation of liver function test. The etiology of this is unclear. Current Visit: Yes (4) Cardiomyopathy Status: Acute Assessment and plan: She has a known severe cardiomyopathy with ejection fraction of around 20%. Continue supportive care for now. Given her severe renal insufficiency, respiratory failure, severe liver function abnormalities, and severe cardiomyopathy, her prognosis is poor. Current Visit: Yes (5) Chronic atrial fibrillation Status: Acute Assessment and plan: Her atrial fibrillation rate appears to be adequately controlled at this time. Current Visit: Yes (6) Hypothyroidism Status: Resolved Current Visit: Yes (7) Diabetes mellitus Status: Chronic Current Visit: No Qualifiers: Diabetes mellitus type: type 2 Chronic kidney disease stage: stage 3 ( moderate) (8) Hypertension Status: Chronic Assessment and plan: This appears to be well controlled. Current Visit: No Qualifiers: Hypertension type: essential hypertension Qualified Code(s): I10 - Essential (primary) hypertension Cardiology - PN: Subj Interval history: Clinically, there is been little change overnight. The patient remains intubated and sedated in the CCU. Her liver function test abnormalities have continued to climb. Her creatinine is stable at about 3.0. She has a leukocytosis. She remains in atrial fibrillation with a heart rate of around 100. Current Medications Acetaminophen (Tylenol Tab) 650 mg PO Q4H PRN PRN Reason: Fever, Headache, Mild Pain Hydrocodone Bitart/Acetaminophen ([facility] 5-325) 1 tablet PO Q4H PRN PRN Reason: Pain Mild (1-3) Albuterol/Ipratropium (Duoneb) 3 ml RESP TX RT Q6H [facility] Last Admin: 01/03/17 07:35 Dose: 3 ml Amiodarone HCl (Cordarone Tab) 200 mg PO DAILY [facility] Apixaban (Eliquis) 2.5 mg PO Q12H [facility] Last Admin: 01/03/17 09:23 Dose: 2.5 mg Bimatoprost (Lumigan) 1 drop BOTH EYES BEDTIME [facility] Last Admin: 01/02/17 20:55 Dose: 1 drop Bisacodyl (Dulcolax Tab) 10 mg PO DAILY PRN PRN Reason: Constipation Dextrose/Water (D50) 25 gm IV PRN PRN PRN Reason: Hypoglycemia with IV access Furosemide (Lasix Inj) 40 mg IV BID DIURETIC [facility] Glucagon () 1 mg IM PRN PRN PRN Reason: Hypoglycemia w/o IV access Propofol (Diprivan) 1,000 mg in 100 mls @ 2.041 mls/hr IV TITRATE [facility]; 5 MCG/KG /MIN PRN Reason: Protocol Last Admin: 01/03/17 01:21 Dose: 15 mcg/kg/min, 6.12 mls/hr Meropenem 500 mg/ Sodium (Chloride) 100 mls @ 200 mls/hr IV Q12H [facility] Insulin Glargine (Lantus) 32 unit SUBCUT BEDTIME [facility] Insulin Human Regular (Humulin R) 0 unit SUBCUT Q6HR [facility] PRN Reason: Protocol Last Admin: 01/03/17 06:24 Dose: 4 unit Iron/Minerals/Multivitamins (Centrum Liquid) 15 ml PO DAILY [facility] Last Admin: 01/03/17 09:23 Dose: 15 ml Metoprolol Tartrate (Lopressor Tab) 25 mg PO BID [facility] Last Admin: 01/03/17 09:23 Dose: 25 mg Morphine Sulfate () 2 mg IV Q4H PRN PRN Reason: Pain Severe (8-10) Simbrinza ( Brinzolamide/Brimonidine Tart [ Simbrinza] 1 Drop) 1 drop RIGHT EYE BID [facility] Last Admin: 01/03/17 09:21 Dose: 1 drop Ondansetron HCl (Zofran Inj) 4 mg IV Q4H PRN PRN Reason: Nausea Pantoprazole Sodium (Protonix Inj) 40 mg IV Q24H [facility] Last Admin: 01/03/17 03:30 Dose: 40 mg Sodium Bicarbonate () 650 mg PO TID [facility] Last Admin: 01/03/17 09:23 Dose: 650 mg Timolol Maleate (Timoptic 0.5%) 1 drop BOTH EYES QAM [facility] Last Admin: 01/03/17 10:17 Dose: Not Given Exam (Progress Note) - Constitutional Vitals: Period Temp Pulse Resp BP Sys/Rivero Pulse Ox Last 24 Hr 97.3 F-99.4 F 70-112 05-05 91-130/42-79 98-100 Exam: General: Frail, elderly, chronically ill-appearing intubated and sedated in the CCU HEENT: Normocephalic, atraumatic Neck: Supple Neck, Midline Trachea Cardiac: Irregular Rhythm, 2 to 3/6 systolic murmur, no gallop, no rub Lungs: Coarse breath sounds per the ventilator Neuro: Difficult to assess as the patient is intubated and sedated Abdomen: Soft, Active Bowel Sounds, No Masses, No Pulsations/Bruits Skin: Normal color, no rash Extremities: No Clubbing, No Cyanosis, No Edema, Normal Upper Extr. Pulses Musculoskeletal: No acute abnormality noted Psychiatric: Unable to assess as the patient is intubated and sedated Result/EKG - Labs CBC & BMP: 01/03/17 02:44 01/03/17 02:44 Lab Results: I have reviewed the past 24 hour labs Labs: Laboratory Results - last 24 hr 01/02/17 01/02/17 01/02/17 04:08 06:02 11:47 WBC RBC Hgb Hct MCV MCH MCHC RDW Plt Count MPV Neut % (Auto) Lymph % (Auto) [place] % (Auto) Eos % (Auto) Baso % (Auto) Neut # (Auto) Lymph # (Auto) [place] # (Auto) Eos # (Auto) Baso # (Auto) Total Counted Immature Gran % Nucleated RBC % Immature Gran # Segmented Neutrophils Band Neutrophils Lymphocytes Nucleated RBCs # Platelet Estimate Anisocytosis Ovalocytes ABG pH ABG pCO2 ABG pO2 ABG HCO3 ABG Total CO2 ABG O2 Saturation ABG Base Excess FiO2 Sodium Potassium Chloride Carbon Dioxide Anion Gap BUN Creatinine GFR Calculation BUN/Creatinine Ratio Glucose POC Glucose 146 H 207 H Calculated Osmolality Calcium Total Bilirubin AST ALT Alkaline Phosphatase Total Protein Albumin Globulin Albumin/Globulin Ratio Vitamin B12 > 2000 H Folate > 24.0 H 01/02/17 01/02/17 01/03/17 17:47 20:02 00:21 WBC RBC Hgb Hct MCV MCH MCHC RDW Plt Count MPV Neut % (Auto) Lymph % (Auto) [place] % (Auto) Eos % (Auto) Baso % (Auto) Neut # (Auto) Lymph # (Auto) [place] # (Auto) Eos # (Auto) Baso # (Auto) Total Counted Immature Gran % Nucleated RBC % Immature Gran # Segmented Neutrophils Band Neutrophils Lymphocytes Nucleated RBCs # Platelet Estimate Anisocytosis Ovalocytes ABG pH ABG pCO2 ABG pO2 ABG HCO3 ABG Total CO2 ABG O2 Saturation ABG Base Excess FiO2 Sodium Potassium Chloride Carbon Dioxide Anion Gap BUN Creatinine GFR Calculation BUN/Creatinine Ratio Glucose POC Glucose 208 H 196 H 172 H Calculated Osmolality Calcium Total Bilirubin AST ALT Alkaline Phosphatase Total Protein Albumin Globulin Albumin/Globulin Ratio Vitamin B12 Folate 01/03/17 01/03/17 01/03/17 02:44 02:44 03:00 WBC 18.1 H D RBC 3.83 D Hgb 11.9 L D Hct 35.7 MCV 93.2 MCH 31 MCHC 33.3 RDW 16.4 Plt Count 166 D MPV 11.8 Neut % (Auto) 91.7 H Lymph % (Auto) 3.4 L [place] % (Auto) 3.9 Eos % (Auto) 0.0 Baso % (Auto) 0.1 Neut # (Auto) 16.5 H Lymph # (Auto) 0.6 L [place] # (Auto) 0.7 Eos # (Auto) 0.0 Baso # (Auto) 0.0 Total Counted 100 Immature Gran % 0.9 Nucleated RBC % 0.3 Immature Gran # 0.17 Segmented Neutrophils 94 H Band Neutrophils 3 Lymphocytes 3 L Nucleated RBCs # 0.05 Platelet Estimate Normal Anisocytosis 1+ Ovalocytes Few ABG pH 7.462 H ABG pCO2 28.8 L ABG pO2 162.0 H ABG HCO3 22.7 ABG Total CO2 18.2 L ABG O2 Saturation 99.9 ABG Base Excess -2.1 FiO2 60.00 Sodium 141 Potassium 3.6 Chloride 105 Carbon Dioxide 23 Anion Gap 16.6 H BUN 63 H D Creatinine 3.00 H GFR Calculation 15 BUN/Creatinine Ratio 21.00 H Glucose 157 H POC Glucose Calculated Osmolality 301.3 Calcium 9.3 Total Bilirubin 2.20 H AST > 2002 H ALT 1423 H Alkaline Phosphatase 88 Total Protein 4.3 L Albumin 2.7 L Globulin 1.6 L Albumin/Globulin Ratio 1.6 Vitamin B12 Folate 01/03/17 06:15 WBC RBC Hgb Hct MCV MCH MCHC RDW Plt Count MPV Neut % (Auto) Lymph % (Auto) [place] % (Auto) Eos % (Auto) Baso % (Auto) Neut # (Auto) Lymph # (Auto) [place] # (Auto) Eos # (Auto) Baso # (Auto) Total Counted Immature Gran % Nucleated RBC % Immature Gran # Segmented Neutrophils Band Neutrophils Lymphocytes Nucleated RBCs # Platelet Estimate Anisocytosis Ovalocytes ABG pH ABG pCO2 ABG pO2 ABG HCO3 ABG Total CO2 ABG O2 Saturation ABG Base Excess FiO2 Sodium Potassium Chloride Carbon Dioxide Anion Gap BUN Creatinine GFR Calculation BUN/Creatinine Ratio Glucose POC Glucose 212 H Calculated Osmolality Calcium Total Bilirubin AST ALT Alkaline Phosphatase Total Protein Albumin Globulin Albumin/Globulin Ratio Vitamin B12 Folate - EKG EKG results: interpreted by me Quality Measures - VTE Contraindication to Pharmacological VTE Prophylaxis: Already on Theraputic Agent , No Prophylaxis Needed
[2017-01-03 11:52] LABS: PT Patient Result 21.9 SECS
[2017-01-03 12:02] LABS: Salicylate < 2.8 MG/DL (2.8-20)
[2017-01-03] MEDS: MEROPENEM 500 MG in SODIUM CHLORIDE 0.9% 100 ML IV SCH ×2 (12:46→23:20)
[2017-01-03 13:29] LABS: Apearance,Urine Slightly Hazy (Clear); Bacteria,Urine Occasional /HPF (Few); Bilirubin,Urine Negative (Negative); Blood, Urine Large mg/dL (Negative); Calcium Oxalate Crystals,Urine Occasional /HPF (Few); Glucose,Urine (UA) Negative (Negative); Hyaline Casts,Urine 44 /LPF (0-3); Ketones,Urine Negative (Negative); Mucus,Urine Occasional /LPF (Occasional); Nitrite,Urine Negative (Negative); Protein,Urine 100 MG/DL; RBC,Urine 82 /HPF (0-4); Squamous Epithelial Cell,Urine Occasional /HPF (0-10); Urine Color Amber (Yellow); Urine Specific Gravity 1.012 (1.001-1.035); WBC,Urine 3 /HPF (0-6)
[2017-01-03] MEDS: INSULIN GLARGINE 100 UNIT/ML SUBCUT SCH (20:03)
[2017-01-03] MEDS: BIMATOPROST 0.01% OPH SOLN 2.5 ML BOTTLE BOTH EYES SCH (20:05)
[2017-01-04] MEDS: PROPOFOL 1,000 MG/100 ML BOTTLE IV SCH (03:13)
[2017-01-04 03:19] LABS: ABG Base Excess 1.6 MMOL/L (-2.5-2.5); ABG HCO3 24.7 MMOL/L (20-26); ABG Oxygen Saturation 98.5 % (95-100); ABG PCO2 33.9 MM HG (35-48); ABG PO2 132.1 MM HG (80-95); ABG TCO2 25.7 MMOL/L (23-27); Allen Test Positive; Pt O2 Delivery Device Ventilator
[2017-01-04] MEDS: PANTOPRAZOLE 40 MG VIAL IV SCH (03:20)
[2017-01-04] MEDS: ALBUTEROL/IPRATROPIUM 3 ML NEB RESP TX SCH ×4 (03:46→19:47)
[2017-01-04 05:41] LABS: Basophils % 0.2 % (0.0-0.8); Eosinophils % 0.1 % (0.00-10.9); Hematocrit 39.6 VOL% (35.7-47.0); Hemoglobin 13.5 GM/DL (12.0-16.0); Immature Granulocytes % 1.6 %; Immature Granulocytes Absolute 0.27 #; Lymphocytes % 5.9 % (21.3-54.2); Magnesium 2.4 MG/DL (1.8-2.4); Mean Corpuscular HGB Conc 34.1 GM/DL (32-36); Mean Corpuscular Hemoglobin 32 PG (27-34); Mean Corpuscular Volume 93.6 FL (87-102); Mean Platelet Volume 12.3 FL (9.6-12.0); Monocytes # 1.4 10*3/uL (0.11-0.8); Monocytes % 8.1 % (1.7-12.7); NRBC # 0.08 10*3/uL; Neutrophils # 14.2 10*3/uL (1.4-7.4); Neutrophils % 84.1 % (38.7-73.9); Phosphorous 3.3 MG/DL (2.5-4.9); Platelet Count 136 T/CUMM (130-400); Prealbumin 8.3 MG/DL (20-40); Red Blood Count 4.23 MC/CUMM (3.8-5.5); Red Cell Distribution Width 17.2 % (9.3-17.3); White Blood Count 16.9 T/CUMM (4-12)
[2017-01-04] MEDS: INSULIN REGULAR 100 UNIT/ML SUBCUT SCH ×3 (05:55→18:07)
[2017-01-04 06:47] LABS: Hepatitis A Ab IgM Quant 0.13 Index; Hepatitis A Ab IgM Result Negative (Negative); Hepatitis B Core IgM Quant 0.09 Index; Hepatitis B Core IgM Result Negative (Negative); Hepatitis B Surface Ag Quant < 0.10 Index; Hepatitis B Surface Ag Result Negative (Negative); Hepatitis C Virus Ab Quant 0.02 Index; Hepatitis C Virus Ab Result Negative (Negative)
--- NOTE | 2017-01-04 07:38 | Cardiology Progress Note ---
Cardiology - PN: Subj Interval history: Cardiology note 81-year-old woman with cardiomyopathy, chronic atrial fibrillation, and respiratory failure. O2 sat 97 on 40% FiO2 Patient completed 4 hours of CPAP yesterday Telemetry shows atrial fib and the 80s Blood pressure 104/60 Tolerating tube feedings Irregular rhythm soft systolic murmur Decreased breath sounds few rhonchi in the right base Abdomen benign No leg edema White count 16.9 hemoglobin 13.5 hematocrit 39.6 Ammonia level yesterday 88 BNP 96 Impression Respiratory failure Cardiomyopathy EF 20% Chronic atrial fibrillation Acute renal failure superimposed on chronic renal failure Hypertension Insulin diabetes Macrocytic anemia Plan CPAP trials IV antibiotics Eliquis twice daily Exam (Progress Note) - Constitutional Vitals: Period Temp Pulse Resp BP Sys/Rivero Pulse Ox Last 24 Hr 97 F-98.7 F 82-112 12-28 84-128/46-90 97-99 Result/EKG - Labs CBC & BMP: 01/04/17 04:24 01/03/17 02:44 Labs: Laboratory Results - last 24 hr 01/03/17 01/03/17 01/03/17 11:31 11:31 11:31 WBC RBC Hgb Hct MCV MCH MCHC RDW Plt Count MPV Neut % (Auto) Lymph % (Auto) [place] % (Auto) Eos % (Auto) Baso % (Auto) Neut # (Auto) Lymph # (Auto) [place] # (Auto) Eos # (Auto) Baso # (Auto) Immature Gran % Nucleated RBC % Immature Gran # Nucleated RBCs # INR 2.0 PT Patient/Control Mix 21.9 D Circ Anticoag PTT 32.0 ABG pH ABG pCO2 ABG pO2 ABG HCO3 ABG Total CO2 ABG O2 Saturation ABG Base Excess FiO2 POC Glucose Phosphorus Magnesium Ammonia Prealbumin Urine Color Urine Appearance Urine pH Ur Specific [place] Urine Protein Urine Glucose (UA) Urine Ketones Urine Blood Urine Nitrate Urine Bilirubin Urine Urobilinogen Urine Leukocytes Urine RBC Urine WBC Ur Squamous Epith Cells Calcium Oxalate Crystal Urine Bacteria Hyaline Casts Urine Mucus Ur Culture Indicated? Salicylates < 2.8 L Acetaminophen 4.0 L Hepatitis A IgM Ab Negative Hep Bs Antigen Negative Hep B Core IgM Ab Negative Hepatitis C Antibody Negative 01/03/17 01/03/17 01/03/17 11:31 11:54 12:35 WBC RBC Hgb Hct MCV MCH MCHC RDW Plt Count MPV Neut % (Auto) Lymph % (Auto) [place] % (Auto) Eos % (Auto) Baso % (Auto) Neut # (Auto) Lymph # (Auto) [place] # (Auto) Eos # (Auto) Baso # (Auto) Immature Gran % Nucleated RBC % Immature Gran # Nucleated RBCs # INR PT Patient/Control Mix Circ Anticoag PTT ABG pH ABG pCO2 ABG pO2 ABG HCO3 ABG Total CO2 ABG O2 Saturation ABG Base Excess FiO2 POC Glucose 180 H Phosphorus Magnesium Ammonia 88 H Prealbumin Urine Color [place] Urine Appearance Slightly hazy Urine pH 5.0 Ur Specific [place] 1.012 Urine Protein 100 Urine Glucose (UA) Negative Urine Ketones Negative Urine Blood Large Urine Nitrate Negative Urine Bilirubin Negative Urine Urobilinogen 4.0 H Urine Leukocytes Negative Urine RBC 82 Urine WBC 3 Ur Squamous Epith Cells Occasional Calcium Oxalate Crystal Occasional Urine Bacteria Occasional Hyaline Casts 44 Urine Mucus Occasional Ur Culture Indicated? Not indicated Salicylates Acetaminophen Hepatitis A IgM Ab Hep Bs Antigen Hep B Core IgM Ab Hepatitis C Antibody 01/03/17 01/03/17 01/03/17 17:39 19:06 23:27 WBC RBC Hgb Hct MCV MCH MCHC RDW Plt Count MPV Neut % (Auto) Lymph % (Auto) [place] % (Auto) Eos % (Auto) Baso % (Auto) Neut # (Auto) Lymph # (Auto) [place] # (Auto) Eos # (Auto) Baso # (Auto) Immature Gran % Nucleated RBC % Immature Gran # Nucleated RBCs # INR PT Patient/Control Mix Circ Anticoag PTT ABG pH ABG pCO2 ABG pO2 ABG HCO3 ABG Total CO2 ABG O2 Saturation ABG Base Excess FiO2 POC Glucose 131 H 211 H 203 H Phosphorus Magnesium Ammonia Prealbumin Urine Color Urine Appearance Urine pH Ur Specific [place] Urine Protein Urine Glucose (UA) Urine Ketones Urine Blood Urine Nitrate Urine Bilirubin Urine Urobilinogen Urine Leukocytes Urine RBC Urine WBC Ur Squamous Epith Cells Calcium Oxalate Crystal Urine Bacteria Hyaline Casts Urine Mucus Ur Culture Indicated? Salicylates Acetaminophen Hepatitis A IgM Ab Hep Bs Antigen Hep B Core IgM Ab Hepatitis C Antibody 01/04/17 01/04/17 01/04/17 03:00 04:24 04:24 WBC 16.9 H RBC 4.23 Hgb 13.5 Hct 39.6 MCV 93.6 MCH 32 MCHC 34.1 RDW 17.2 Plt Count 136 MPV 12.3 H Neut % (Auto) 84.1 H Lymph % (Auto) 5.9 L [place] % (Auto) 8.1 Eos % (Auto) 0.1 Baso % (Auto) 0.2 Neut # (Auto) 14.2 H Lymph # (Auto) 1.0 L [place] # (Auto) 1.4 H Eos # (Auto) 0.0 Baso # (Auto) 0.0 Immature Gran % 1.6 Nucleated RBC % 0.5 Immature Gran # 0.27 Nucleated RBCs # 0.08 INR PT Patient/Control Mix Circ Anticoag PTT ABG pH 7.480 H ABG pCO2 33.9 L ABG pO2 132.1 H ABG HCO3 24.7 ABG Total CO2 25.7 ABG O2 Saturation 98.5 ABG Base Excess 1.6 FiO2 40.00 POC Glucose Phosphorus 3.3 Magnesium 2.4 Ammonia Prealbumin 8.3 L Urine Color Urine Appearance Urine pH Ur Specific [place] Urine Protein Urine Glucose (UA) Urine Ketones Urine Blood Urine Nitrate Urine Bilirubin Urine Urobilinogen Urine Leukocytes Urine RBC Urine WBC Ur Squamous Epith Cells Calcium Oxalate Crystal Urine Bacteria Hyaline Casts Urine Mucus Ur Culture Indicated? Salicylates Acetaminophen Hepatitis A IgM Ab Hep Bs Antigen Hep B Core IgM Ab Hepatitis C Antibody 01/04/17 05:40 WBC RBC Hgb Hct MCV MCH MCHC RDW Plt Count MPV Neut % (Auto) Lymph % (Auto) [place] % (Auto) Eos % (Auto) Baso % (Auto) Neut # (Auto) Lymph # (Auto) [place] # (Auto) Eos # (Auto) Baso # (Auto) Immature Gran % Nucleated RBC % Immature Gran # Nucleated RBCs # INR PT Patient/Control Mix Circ Anticoag PTT ABG pH ABG pCO2 ABG pO2 ABG HCO3 ABG Total CO2 ABG O2 Saturation ABG Base Excess FiO2 POC Glucose 212 H Phosphorus Magnesium Ammonia Prealbumin Urine Color Urine Appearance Urine pH Ur Specific [place] Urine Protein Urine Glucose (UA) Urine Ketones Urine Blood Urine Nitrate Urine Bilirubin Urine Urobilinogen Urine Leukocytes Urine RBC Urine WBC Ur Squamous Epith Cells Calcium Oxalate Crystal Urine Bacteria Hyaline Casts Urine Mucus Ur Culture Indicated? Salicylates Acetaminophen Hepatitis A IgM Ab Hep Bs Antigen Hep B Core IgM Ab Hepatitis C Antibody Quality Measures - VTE Contraindication to Pharmacological VTE Prophylaxis: Already on Theraputic Agent , No Prophylaxis Needed
[2017-01-04] MEDS: FUROSEMIDE 40 MG/4 ML VIAL IV SCH ×2 (08:09→15:18)
[2017-01-04] MEDS: MULTIVITAMIN LIQUID (CENTRUM) 60 ML BOTTLE PO SCH (08:10)
[2017-01-04] MEDS: TIMOLOL 0.5% OPH SOLN 5 ML BOTTLE BOTH EYES SCH (08:10)
[2017-01-04] MEDS: METOPROLOL TARTRATE 25 MG TABLET PO SCH ×2 (08:11→20:18)
[2017-01-04] MEDS: SODIUM BICARBONATE 650 MG TABLET PO SCH ×3 (08:11→20:18)
[2017-01-04] MEDS: APIXABAN 2.5 MG TABLET PO SCH ×2 (08:11→20:18)
[2017-01-04] MEDS: SIMBRINZA RIGHT EYE SCH ×2 (08:12→20:19)
--- NOTE | 2017-01-04 08:35 | Pulmonology Progress Note ---
Pulmonary - PN: Subj Interval history: The patient is an 81-year-old white lady that has a significant cardiomyopathy with chronic atrial fibrillation. She is a diabetic with hypertension and apparently has some dementia. She had respiratory failure and is on the ventilator. She has significant elevation in hepatic enzymes. She is also developed worsening renal failure. She is reasonably stable on the ventilator at present. Her chest x-ray is improving. She did do CPAP fairly well yesterday. She will respond a little bit more now. Exam (Progress Note) - Constitutional Vitals: Period Temp Pulse Resp BP Sys/Rivero Pulse Ox Last 24 Hr 97 F-98.7 F 82-108 12-28 84-128/46-90 97-99 Exam: General appearance: normal weight, no acute distress (She is responding a little better and is comfortable on the ventilator.) - Head Head exam: Present: normal inspection, normocephalic - Eye Eye exam: Present: EOMI. Absent: scleral icterus Pupils: Present: ANCA - ENT ENT exam: Present: other (ET tube in good position) - Neck Neck exam: Absent: lymphadenopathy, thyromegaly - Respiratory Respiratory exam: Present: Her lungs have fairly good breath sounds and she is moving air reasonably well with just minimal rhonchi. - Cardiovascular Cardiovascular exam: Present: irregular rhythm but her heart rate is controlled. Absent: gallop, systolic murmur - GI/Abdominal GI/Abdominal exam: Present: hypoactive bowel sounds, soft. Absent: distended, firm, organomegaly, tenderness - Extremities Exam Extremities exam: Present: Her legs are not as swollen and nontender. - Neurological Exam Neurological exam: Present: other (She is arousable and comfortable on the ventilator ) - Psychiatric Psychiatric exam: Absent: anxious - Skin Skin exam: Present: warm, dry, other (She does have some bruises on her extremities) Results - Labs CBC & BMP: 01/04/17 04:24 01/03/17 02:44 - Diagnostic Findings Procedure: Chest x-ray: image reviewed by me, report reviewed by me (Chest x- ray looks better with less CHF.) Assessment and Plan (1) Cardiomyopathy Status: Acute Assessment and plan: The patient apparently has a nonischemic cardiomyopathy with ejection fraction of 20%. She is now on the ventilator at present. Her chest x-ray is better and her CHF is improved. Current Visit: Yes (2) Acute on chronic systolic CHF (congestive heart failure) Status: Acute Assessment and plan: The patient had respiratory distress and is now on the ventilator. Her chest x- ray suggest only mild heart failure. Her oxygenation is stable today. Overall she looks better. Current Visit: Yes (3) Acute respiratory failure with hypoxia Status: Acute Assessment and plan: The patient was apparently in respiratory distress and had to be intubated. She is stable on the ventilator and doing CPAP better. Her oxygenation is improved. Current Visit: Yes (4) Acute worsening of stage 3 chronic kidney disease Status: Acute Assessment and plan: The patient's creatinine is up to 3 now. Creatinine is unchanged so far. Her urine output has been stable. Current Visit: Yes (5) Chronic atrial fibrillation Status: Acute Assessment and plan: The patient's heart rate is under fair control. I am holding her amiodarone because of her liver toxicity. Current Visit: Yes (6) IDDM (insulin dependent diabetes mellitus) Status: Acute Assessment and plan: The patient's glucose was 172 this morning. Current Visit: Yes (7) Dementia Status: Chronic Assessment and plan: Patient reportedly has a history of some dementia. She has mainly been sedated on the ventilator. Current Visit: No (8) Hypertension Status: Chronic Assessment and plan: The patient has a hypertensive cardiomyopathy and her blood pressure is doing okay at present. Current Visit: No Qualifiers: Hypertension type: essential hypertension Qualified Code(s): I10 - Essential (primary) hypertension (9) Shock liver Status: Acute Assessment and plan: The patient has markedly elevated liver enzymes and this looks like she may have shock liver. Her liver enzymes are still very high but her ultrasound looks okay. She does not appear to be tender. Will check her labs tomorrow. Current Visit: Yes
[2017-01-04 08:51] LABS: Albumin 2.7 G/DL (3.4-5.0); Bilirubin,Total 1.5 MG/DL (0.2-1.0); Osmolality,Calculated 314.8 MOS/KG (273-304); Potassium 3.6 MMOL/L (3.5-5.1); Total Protein 4.4 G/DL (6.4-8.3)
--- NOTE | 2017-01-04 09:41 | XRay Report ---
Exam: XR chest 1V portable Date: 01/04/2017 4:00 AM Indication: CHF follow-up ventilator Comparison: 01/03/2017 Technical: AP portable Findings: External cardiac leads endotracheal tube and nasogastric tube are present. Cardiomegaly present with low volume effusions and bibasilar atelectasis left greater than right. Arthritic change present over the shoulders. No pneumothorax. ASVD present. Impression: 1. Stable appearance of life support tubing 2. Cardiomegaly with low volume effusions atelectatic change similar to previous study PROCEDURE INTERPRETED AT [facility] DEPARTMENT OF RADIOLOGY Final Report Signed by: Dr. Brett Martínez
[2017-01-04] MEDS: MEROPENEM 500 MG in SODIUM CHLORIDE 0.9% 100 ML IV SCH ×2 (10:12→22:30)
--- NOTE | 2017-01-04 10:18 | Hospitalist Progress Note ---
Assessment and Plan (1) Acute respiratory failure with hypoxia Status: Acute Assessment and plan: 1)acute respiratory failure- now that she is waking and off sedation, proceed with CPAP trials underway. She is on Merrem to cover for potential pneumonia- discuss with Dr Howell- his note does not mention pneumonia. I discussed the case with him re:weaning from vent 2)leukocytosis 3)acute on chronic systolic CHF- BNP now 96 4)chronic afib- amio held because of liver enzyme elevations, rate ok. on dig. 5)ZULAY on CKD- creatinine 2.6, good urine output. 6)IDDM- using SSI 7)code status- DNR. Consider referral to LTAC is not extubated quickly. Current Visit: Yes (2) Dementia Status: Chronic Current Visit: No (3) Chronic atrial fibrillation Status: Acute Current Visit: Yes (4) IDDM (insulin dependent diabetes mellitus) Status: Acute Current Visit: Yes (5) Acute on chronic systolic CHF (congestive heart failure) Status: Acute Current Visit: Yes (6) Shock liver Status: Acute Current Visit: Yes (7) Acute renal failure superimposed on stage 4 chronic kidney disease Status: Acute Current Visit: Yes (8) Leukocytosis Status: Acute Current Visit: Yes Hospitalist: Subjective Interval history: Mrs Alcala has been stable on vent. Did CPAP yesterday, and Dr Howell hopes to extubate her soon. Tolerating tube feeds. UOP good. DNR. She is off sedation and more responsive. Exam - Constitutional Vitals: Period Temp Pulse Resp BP Sys/Rivero Pulse Ox Last 24 Hr 97 F-98.7 F 80-108 12-28 84-128/46-90 97-99 General appearance: no acute distress (startles when touched or spoken to.), over weight - Eye Eye exam: Present: EOMI Pupils: Present: ANCA - Respiratory Respiratory exam: Present: clear to auscultation bilaterally (no wheezes or rales or rhonchi) - Cardiovascular Cardiovascular exam: Present: irregular rhythm (controlled rate) - GI/Abdominal GI/Abdominal exam: Present: normal bowel sounds, soft. Absent: tenderness - Extremities Exam Extremities exam: Absent: edema - Neurological Exam Neurological exam: Present: other (observed to move all 4 extremities, sometimes to command, startles when anyone speaks to her or touches her. ) - Skin Skin exam: Present: warm, dry Results - Labs CBC & BMP: 01/04/17 04:24 01/04/17 06:00 Lab Results: I have reviewed the past 24 hour labs Quality Measures - VTE Contraindication to Pharmacological VTE Prophylaxis: Already on Theraputic Agent , No Prophylaxis Needed
[2017-01-04] MEDS: INSULIN GLARGINE 100 UNIT/ML SUBCUT SCH (20:17)
[2017-01-04] MEDS: BIMATOPROST 0.01% OPH SOLN 2.5 ML BOTTLE BOTH EYES SCH (20:18)
[2017-01-05] MEDS: INSULIN REGULAR 100 UNIT/ML SUBCUT SCH ×5 (00:24→23:57)
[2017-01-05] MEDS: ALBUTEROL/IPRATROPIUM 3 ML NEB RESP TX SCH ×4 (00:24→19:45)
[2017-01-05] MEDS: LORazepam 2 MG/1 ML VIAL IV PRN ×2 (01:55→21:00)
[2017-01-05] MEDS: PANTOPRAZOLE 40 MG VIAL IV SCH (02:35)
[2017-01-05 02:56] LABS: ABG HCO3 30.6 MMOL/L (20-26); ABG Oxygen Saturation 97.8 % (95-100); ABG PCO2 31.8 MM HG (35-48); ABG PH 7.601 (7.35-7.45); ABG PO2 94.5 MM HG (80-95); ABG TCO2 31.6 MMOL/L (23-27); Allen Test Positive; Pt O2 Delivery Device Ventilator
[2017-01-05 04:53] LABS: Basophils % 0.2 % (0.0-0.8); Eosinophils % 0.2 % (0.00-10.9); Hematocrit 37.4 VOL% (35.7-47.0); Hemoglobin 12.3 GM/DL (12.0-16.0); Immature Granulocytes % 1.5 %; Immature Granulocytes Absolute 0.14 #; Mean Corpuscular HGB Conc 32.9 GM/DL (32-36); Mean Corpuscular Hemoglobin 31 PG (27-34); Mean Corpuscular Volume 94.7 FL (87-102); Mean Platelet Volume 11.9 FL (9.6-12.0); Monocytes # 1.1 10*3/uL (0.11-0.8); Monocytes % 11.5 % (1.7-12.7); NRBC # 0.02 10*3/uL; Neutrophils % 75.6 % (38.7-73.9); Platelet Count 125 T/CUMM (130-400); Red Blood Count 3.95 MC/CUMM (3.8-5.5); Red Cell Distribution Width 16.8 % (9.3-17.3); White Blood Count 9.2 T/CUMM (4-12)
[2017-01-05 05:28] LABS: Albumin 2.5 G/DL (3.4-5.0); Bilirubin,Total 1.3 MG/DL (0.2-1.0); Calcium 8.7 MG/DL (8.5-10.1); Osmolality,Calculated 319.3 MOS/KG (273-304); Potassium 3.5 MMOL/L (3.5-5.1); Total Protein 4.2 G/DL (6.4-8.3)
[2017-01-05 05:47] LABS: Calcium 8.8 MG/DL (8.5-10.1); Magnesium 2.5 MG/DL (1.8-2.4); Osmolality,Calculated 315.4 MOS/KG (273-304); Potassium 3.4 MMOL/L (3.5-5.1)
--- NOTE | 2017-01-05 06:59 | XRay Report ---
Exam: XR chest 1V portable Date: 01/05/2017 4:00 AM Indication: CHF follow-up ventilator Comparison: 01/04/2017 Technical: AP portable Findings: Endotracheal tube and nasogastric tube present. Cardiomegaly present. ASVD is present. Low volume effusions are present left greater than right. Mediastinum is intact. No pneumothorax Impression: 1. Stable appearance of life support tubing 2. Cardiomegaly with low volume effusions and atelectatic change similar to previous study PROCEDURE INTERPRETED AT [facility] DEPARTMENT OF RADIOLOGY Final Report Signed by: Dr. Brett Martínez
--- NOTE | 2017-01-05 07:27 | Pulmonology Progress Note ---
Pulmonary - PN: Subj Interval history: The patient is an 81-year-old white lady that has a significant cardiomyopathy with chronic atrial fibrillation. She is a diabetic with hypertension and apparently has some dementia. She had respiratory failure and is on the ventilator. She has significant elevation in hepatic enzymes. She is also developed worsening renal failure. She is reasonably stable on the ventilator at present. Her chest x-ray is improving. The patient had a fairly good night but did require some Ativan for agitation. She is responsive but does not always follow commands. She did some CPAP yesterday and her vital signs are stable. She appears to be hemodynamically stable. Her chest x-ray is much better. Exam (Progress Note) - Constitutional Vitals: Period Temp Pulse Resp BP Sys/Rivero Pulse Ox Last 24 Hr 97.1 F-98.6 F 70-100 12-77 86-114/48-73 92-100 Exam: General appearance: normal weight, no acute distress (She is responding a little better but does not follow commands very well. She is in no distress now. ) - Head Head exam: Present: normal inspection, normocephalic - Eye Eye exam: Present: EOMI. Absent: scleral icterus Pupils: Present: ANCA - ENT ENT exam: Present: other (ET tube in good position) - Neck Neck exam: Absent: lymphadenopathy, thyromegaly - Respiratory Respiratory exam: Present: Her lungs have fairly good breath sounds and she is moving air reasonably well. I do not hear any wheezing in the rhonchi are minimal. - Cardiovascular Cardiovascular exam: Present: irregular rhythm but her heart rate is controlled. Absent: gallop, systolic murmur - GI/Abdominal GI/Abdominal exam: Present: active bowel sounds, soft. Absent: distended, firm , organomegaly, tenderness - Extremities Exam Extremities exam: Present: Her legs are not as swollen and nontender. - Neurological Exam Neurological exam: Present: other (She is arousable and comfortable on the ventilator ) - Psychiatric Psychiatric exam: Absent: anxious - Skin Skin exam: Present: warm, dry, other (She does have some bruises on her extremities) Results - Labs CBC & BMP: 01/05/17 04:34 01/05/17 04:34 Labs: The PO2 is 94 with a PCO2 of 31 and pH of 7.6 - Diagnostic Findings Procedure: Chest x-ray: image reviewed by me, report reviewed by me (Her chest x -ray is fairly clear with minimal changes in the left base.) Assessment and Plan (1) Cardiomyopathy Status: Acute Assessment and plan: The patient apparently has a nonischemic cardiomyopathy with ejection fraction of 20%. She is now on the ventilator at present. Her chest x-ray is better and her CHF is improved. She appears to be hemodynamically stable at present. Current Visit: Yes (2) Acute on chronic systolic CHF (congestive heart failure) Status: Acute Assessment and plan: The patient had respiratory distress and is now on the ventilator. Her chest x- ray is improving and her oxygenation is adequate. Current Visit: Yes (3) Acute respiratory failure with hypoxia Status: Acute Assessment and plan: The patient was apparently in respiratory distress and had to be intubated. She is stable on the ventilator and doing CPAP better. Her oxygenation is improved. Her chest x-ray is clearing. We will try to extubate her as soon as she is more responsive. Current Visit: Yes (4) Acute worsening of stage 3 chronic kidney disease Status: Acute Assessment and plan: The patient's creatinine is improving and is down to 1.9. Current Visit: Yes (5) Chronic atrial fibrillation Status: Acute Assessment and plan: The patient's heart rate is under fair control. I am holding her amiodarone because of her liver toxicity. Current Visit: Yes (6) IDDM (insulin dependent diabetes mellitus) Status: Acute Assessment and plan: The patient's glucose was 143 this morning. Current Visit: Yes (7) Dementia Status: Chronic Assessment and plan: Patient reportedly has a history of some dementia. She is arousable but does not always follow commands. Current Visit: No (8) Hypertension Status: Chronic Assessment and plan: The patient has a hypertensive cardiomyopathy and her blood pressure is doing okay at present. Current Visit: No Qualifiers: Hypertension type: essential hypertension Qualified Code(s): I10 - Essential (primary) hypertension (9) Shock liver Status: Acute Assessment and plan: The patient had very elevated liver enzymes and they are coming down nicely now Current Visit: Yes
--- NOTE | 2017-01-05 07:30 | Cardiology Progress Note ---
Cardiology - PN: Subj Interval history: Cardiology note 81-year-old woman with cardiomyopathy, chronic atrial fibrillation and respiratory failure. She completed stage III of CPAP trials yesterday. Telemetry shows atrial fib controlled rate in the 90s. O2 sat 99 on 40% FiO2 Blood pressure 104/50 Patient is alert and responsive Irregular rhythm no murmur Decreased breath sounds few basilar rhonchi Abdomen soft benign No leg edema Lab data today White count 9.2 hemoglobin 12.3 hematocrit 37.4 Sodium 148 potassium 3.5 chloride 107 CO2 33 BUN 80 creatinine down to 1.90 Glucose 127 magnesium 2.5 Impression Cardiomyopathy EF 20% Chronic atrial fibrillation Respiratory failure Acute renal failure superimposed on chronic renal failure improving creatinine down to 1.90 today Hypertension Diabetes Macrocytic anemia Plan CPAP trials IV antibiotics Eliquis Metoprolol 25 mg twice daily Exam (Progress Note) - Constitutional Vitals: Period Temp Pulse Resp BP Sys/Rivero Pulse Ox Last 24 Hr 97.1 F-98.6 F 70-100 12-77 86-114/48-73 92-100 Result/EKG - Labs CBC & BMP: 01/05/17 04:34 01/05/17 04:34 Labs: Laboratory Results - last 24 hr 01/04/17 01/04/17 01/04/17 06:00 11:25 17:42 WBC RBC Hgb Hct MCV MCH MCHC RDW Plt Count MPV Neut % (Auto) Lymph % (Auto) [place] % (Auto) Eos % (Auto) Baso % (Auto) Neut # (Auto) Lymph # (Auto) [place] # (Auto) Eos # (Auto) Baso # (Auto) Immature Gran % Nucleated RBC % Immature Gran # Nucleated RBCs # ABG pH ABG pCO2 ABG pO2 ABG HCO3 ABG Total CO2 ABG O2 Saturation ABG Base Excess FiO2 Sodium 144 Potassium 3.6 Chloride 106 Carbon Dioxide 29 Anion Gap 12.6 BUN 83 H Creatinine 2.60 H GFR Calculation 18 BUN/Creatinine Ratio 31.00 H Glucose 176 H POC Glucose 172 H 153 H Calculated Osmolality 314.8 H Calcium 9.0 Magnesium Total Bilirubin 1.50 H AST 707 H ALT 1007 H Alkaline Phosphatase 158 H Total Protein 4.4 L Albumin 2.7 L Globulin 1.7 L Albumin/Globulin Ratio 1.5 01/04/17 01/05/17 01/05/17 20:04 00:14 02:48 WBC RBC Hgb Hct MCV MCH MCHC RDW Plt Count MPV Neut % (Auto) Lymph % (Auto) [place] % (Auto) Eos % (Auto) Baso % (Auto) Neut # (Auto) Lymph # (Auto) [place] # (Auto) Eos # (Auto) Baso # (Auto) Immature Gran % Nucleated RBC % Immature Gran # Nucleated RBCs # ABG pH 7.601 H ABG pCO2 31.8 L ABG pO2 94.5 ABG HCO3 30.6 H ABG Total CO2 31.6 H ABG O2 Saturation 97.8 ABG Base Excess 9.0 H FiO2 40.00 Sodium Potassium Chloride Carbon Dioxide Anion Gap BUN Creatinine GFR Calculation BUN/Creatinine Ratio Glucose POC Glucose 192 H 159 H Calculated Osmolality Calcium Magnesium Total Bilirubin AST ALT Alkaline Phosphatase Total Protein Albumin Globulin Albumin/Globulin Ratio 01/05/17 01/05/17 01/05/17 04:34 04:34 04:34 WBC 9.2 D RBC 3.95 Hgb 12.3 Hct 37.4 MCV 94.7 MCH 31 MCHC 32.9 RDW 16.8 Plt Count 125 L MPV 11.9 Neut % (Auto) 75.6 H Lymph % (Auto) 11.0 L Evans % (Auto) 11.5 Eos % (Auto) 0.2 Baso % (Auto) 0.2 Neut # (Auto) 7.0 Lymph # (Auto) 1.0 L Evans # (Auto) 1.1 H Eos # (Auto) 0.0 Baso # (Auto) 0.0 Immature Gran % 1.5 Nucleated RBC % 0.2 Immature Gran # 0.14 Nucleated RBCs # 0.02 ABG pH ABG pCO2 ABG pO2 ABG HCO3 ABG Total CO2 ABG O2 Saturation ABG Base Excess FiO2 Sodium 147 H 148 H Potassium 3.4 L 3.5 Chloride 106 107 Carbon Dioxide 32 33 H Anion Gap 12.4 11.5 BUN 77 H 80 H Creatinine 1.80 H 1.90 H GFR Calculation 28 26 BUN/Creatinine Ratio 42.00 H 42.00 H Glucose 121 H 127 H POC Glucose Calculated Osmolality 315.4 H 319.3 H Calcium 8.8 8.7 Magnesium 2.5 H Total Bilirubin 1.30 H AST 326 H ALT 679 H Alkaline Phosphatase 197 H Total Protein 4.2 L Albumin 2.5 L Globulin 1.7 L Albumin/Globulin Ratio 1.4 06/27/17 06/27/17 05:34 06:15 WBC RBC Hgb Hct MCV MCH MCHC RDW Plt Count MPV Neut % (Auto) Lymph % (Auto) Evans % (Auto) Eos % (Auto) Baso % (Auto) Neut # (Auto) Lymph # (Auto) Evans # (Auto) Eos # (Auto) Baso # (Auto) Immature Gran % Nucleated RBC % Immature Gran # Nucleated RBCs # ABG pH ABG pCO2 ABG pO2 ABG HCO3 ABG Total CO2 ABG O2 Saturation ABG Base Excess FiO2 Sodium Potassium Chloride Carbon Dioxide Anion Gap BUN Creatinine GFR Calculation BUN/Creatinine Ratio Glucose POC Glucose 141 H 143 H Calculated Osmolality Calcium Magnesium Total Bilirubin AST ALT Alkaline Phosphatase Total Protein Albumin Globulin Albumin/Globulin Ratio Quality Measures - VTE Contraindication to Pharmacological VTE Prophylaxis: Already on Theraputic Agent , No Prophylaxis Needed
[2017-01-05] MEDS: SODIUM BICARBONATE 650 MG TABLET PO SCH ×3 (09:09→20:27)
[2017-01-05] MEDS: TIMOLOL 0.5% OPH SOLN 5 ML BOTTLE BOTH EYES SCH (09:09)
[2017-01-05] MEDS: METOPROLOL TARTRATE 25 MG TABLET PO SCH ×2 (09:09→20:27)
[2017-01-05] MEDS: FUROSEMIDE 40 MG/4 ML VIAL IV SCH ×2 (09:09→15:33)
[2017-01-05] MEDS: SIMBRINZA RIGHT EYE SCH ×2 (09:09→20:29)
[2017-01-05] MEDS: APIXABAN 2.5 MG TABLET PO SCH ×2 (09:10→20:27)
[2017-01-05] MEDS: MEROPENEM 500 MG in SODIUM CHLORIDE 0.9% 100 ML IV SCH (10:50)
--- NOTE | 2017-01-05 11:27 | Hospitalist Progress Note ---
Assessment and Plan (1) Acute respiratory failure with hypoxia Status: Acute Assessment and plan: 1)acute respiratory failure- CPAP trials. may extubate today. STop Merrem- no pneumonia on CXR, afebrile, cultures negative. 2)leukocytosis- resolved. 3)acute on chronic systolic CHF- BNP now 96. no pulmonary edema or lower extremity edema. 4)chronic afib- amio held because of liver enzyme elevations, rate ok. on dig. 5)ZULAY on CKD- creatinine down to 1.9 good urine output. 6)IDDM- using SSI 7)code status- DNR. Consider referral to LTAC is not extubated quickly. Current Visit: Yes (2) Dementia Status: Chronic Current Visit: No (3) Chronic atrial fibrillation Status: Acute Current Visit: Yes (4) IDDM (insulin dependent diabetes mellitus) Status: Acute Current Visit: Yes (5) Acute on chronic systolic CHF (congestive heart failure) Status: Acute Current Visit: Yes (6) Shock liver Status: Acute Current Visit: Yes (7) Acute renal failure superimposed on stage 4 chronic kidney disease Status: Acute Current Visit: Yes (8) Leukocytosis Status: Acute Current Visit: Yes Hospitalist: Subjective Interval history: Mrs Alcala is doing well with CPAP this morning and may be extubated today. She has been off Diprivan for a couple of days. She still startles when examined but is cooperative and shakes her head to answer questions. Exam - Constitutional Vitals: Period Temp Pulse Resp BP Sys/Rivero Pulse Ox Last 24 Hr 96.5 F-98.6 F 70-100 12-77 86-114/48-73 96-100 General appearance: no acute distress, over weight - Eye Eye exam: Present: EOMI. Absent: scleral icterus - Respiratory Respiratory exam: Present: clear to auscultation bilaterally - Cardiovascular Cardiovascular exam: Present: irregular rhythm - GI/Abdominal GI/Abdominal exam: Present: normal bowel sounds, soft. Absent: tenderness - Extremities Exam Extremities exam: Absent: edema Results - Labs CBC & BMP: 01/05/17 04:34 01/05/17 04:34 Lab Results: I have reviewed the past 24 hour labs Quality Measures - VTE Contraindication to Pharmacological VTE Prophylaxis: Already on Theraputic Agent , No Prophylaxis Needed
[2017-01-05] MEDS: INSULIN GLARGINE 100 UNIT/ML SUBCUT SCH (20:27)
[2017-01-05] MEDS: BIMATOPROST 0.01% OPH SOLN 2.5 ML BOTTLE BOTH EYES SCH (20:31)
[2017-01-06] MEDS: ALBUTEROL/IPRATROPIUM 3 ML NEB RESP TX SCH ×4 (00:02→19:21)
[2017-01-06] MEDS: PANTOPRAZOLE 40 MG VIAL IV SCH (02:33)
[2017-01-06 04:22] LABS: Basophils % 0.1 % (0.0-0.8); Eosinophils % 0.5 % (0.00-10.9); Hematocrit 40.2 VOL% (35.7-47.0); Hemoglobin 12.9 GM/DL (12.0-16.0); Immature Granulocytes % 2.2 %; Immature Granulocytes Absolute 0.16 #; Lymphocytes % 13.4 % (21.3-54.2); Mean Corpuscular HGB Conc 32.1 GM/DL (32-36); Mean Corpuscular Hemoglobin 32 PG (27-34); Mean Corpuscular Volume 98.5 FL (87-102); Monocytes # 1.2 10*3/uL (0.11-0.8); Monocytes % 15.6 % (1.7-12.7); Neutrophils # 5.1 10*3/uL (1.4-7.4); Neutrophils % 68.2 % (38.7-73.9); Platelet Count 118 T/CUMM (130-400); Red Blood Count 4.08 MC/CUMM (3.8-5.5); Red Cell Distribution Width 17.4 % (9.3-17.3); White Blood Count 7.4 T/CUMM (4-12)
[2017-01-06 04:40] LABS: ABG Base Excess 10.8 MMOL/L (-2.5-2.5); ABG HCO3 34.6 MMOL/L (20-26); ABG Oxygen Saturation 99.6 % (95-100); ABG PH 7.504 (7.35-7.45); ABG TCO2 30.7 MMOL/L (23-27); Allen Test Positive; Pt O2 Delivery Device Ventilator
[2017-01-06 04:50] LABS: Band Neutrophils 2 % (0-10); Eosinophils 1 % (0-10); Lymphocytes 16 % (20-55); Segmented Neutrophils 74 % (50-85); Total Cells Counted 100
[2017-01-06 04:51] LABS: Platelet Estimate Adequate
[2017-01-06 04:56] LABS: Calcium 9.2 MG/DL (8.5-10.1); Magnesium 2.8 MG/DL (1.8-2.4); Potassium 3.9 MMOL/L (3.5-5.1)
[2017-01-06] MEDS: LORazepam 2 MG/1 ML VIAL IV PRN (06:18)
[2017-01-06] MEDS: INSULIN REGULAR 100 UNIT/ML SUBCUT SCH ×3 (06:20→18:24)
--- NOTE | 2017-01-06 07:32 | Cardiology Progress Note ---
Cardiology - PN: Subj Interval history: Cardiology note 81 woman with cardiomyopathy chronic atrial fib and respiratory failure. She completed stage V CPAP trials yesterday. Telemetry shows atrial fib with rate in the 90s. O2 sat is 99 on 40% FiO2 blood pressure 96/50 Irregular rhythm no murmur Abdomen benign Decreased breath sounds few rhonchi in the bases No leg edema Lab data today sodium 150 potassium 3.9 chloride 107 CO2 36 BUN 76 creatinine 1.60 glucose 144 magnesium 2.8 LFTs are improving. Total bili down to 1.30 AST down to 376 ALT down to 679 Impression Chronic atrial fibrillation cardiomyopathy EF 20% Respiratory failure Acute renal failure superimposed on chronic renal failure improving. Creatinine down to 1.60 today Hypertension Diabetes Macrocytic anemia Dementia Plan CPAP trials. Hope to extubate soon IV antibiotics Eliquis 2.5 twice daily Metoprolol 25 mg twice daily Exam (Progress Note) - Constitutional Vitals: Period Temp Pulse Resp BP Sys/Rivero Pulse Ox Last 24 Hr 97.3 F-98.3 F 79-105 8-21 88-111/48-71 97-100 Result/EKG - Labs CBC & BMP: 01/06/17 03:07 01/06/17 03:07 Labs: Laboratory Results - last 24 hr 01/05/17 01/05/17 01/05/17 11:33 18:03 19:40 WBC RBC Hgb Hct MCV MCH MCHC RDW Plt Count MPV Neut % (Auto) Lymph % (Auto) [place] % (Auto) Eos % (Auto) Baso % (Auto) Neut # (Auto) Lymph # (Auto) [place] # (Auto) Eos # (Auto) Baso # (Auto) Total Counted Immature Gran % Nucleated RBC % Immature Gran # Segmented Neutrophils Band Neutrophils Lymphocytes Monocytes Eosinophils Nucleated RBCs # Platelet Estimate ABG pH ABG pCO2 ABG pO2 ABG HCO3 ABG Total CO2 ABG O2 Saturation ABG Base Excess FiO2 Sodium Potassium Chloride Carbon Dioxide Anion Gap BUN Creatinine GFR Calculation BUN/Creatinine Ratio Glucose POC Glucose 170 H 185 H 185 H Calculated Osmolality Calcium Magnesium 01/05/17 01/06/17 01/06/17 23:45 03:07 03:07 WBC 7.4 RBC 4.08 Hgb 12.9 Hct 40.2 MCV 98.5 MCH 32 MCHC 32.1 RDW 17.4 H Plt Count 118 L MPV 12.0 Neut % (Auto) 68.2 Lymph % (Auto) 13.4 L [place] % (Auto) 15.6 H Eos % (Auto) 0.5 Baso % (Auto) 0.1 Neut # (Auto) 5.1 Lymph # (Auto) 1.0 L [place] # (Auto) 1.2 H Eos # (Auto) 0.0 Baso # (Auto) 0.0 Total Counted 100 Immature Gran % 2.2 Nucleated RBC % 0.0 Immature Gran # 0.16 Segmented Neutrophils 74 Band Neutrophils 2 Lymphocytes 16 L Monocytes 7 Eosinophils 1 Nucleated RBCs # 0.00 Platelet Estimate Adequate ABG pH ABG pCO2 ABG pO2 ABG HCO3 ABG Total CO2 ABG O2 Saturation ABG Base Excess FiO2 Sodium 150 H Potassium 3.9 Chloride 107 Carbon Dioxide 36 H Anion Gap 10.9 BUN 76 H Creatinine 1.60 H GFR Calculation 32 BUN/Creatinine Ratio 47.00 H Glucose 124 H POC Glucose 160 H Calculated Osmolality 321.0 H Calcium 9.2 Magnesium 2.8 H 01/06/17 01/06/17 04:16 05:40 WBC RBC Hgb Hct MCV MCH MCHC RDW Plt Count MPV Neut % (Auto) Lymph % (Auto) [place] % (Auto) Eos % (Auto) Baso % (Auto) Neut # (Auto) Lymph # (Auto) [place] # (Auto) Eos # (Auto) Baso # (Auto) Total Counted Immature Gran % Nucleated RBC % Immature Gran # Segmented Neutrophils Band Neutrophils Lymphocytes Monocytes Eosinophils Nucleated RBCs # Platelet Estimate ABG pH 7.504 H ABG pCO2 45.0 ABG pO2 152.0 H ABG HCO3 34.6 H ABG Total CO2 30.7 H ABG O2 Saturation 99.6 ABG Base Excess 10.8 H FiO2 40.00 Sodium Potassium Chloride Carbon Dioxide Anion Gap BUN Creatinine GFR Calculation BUN/Creatinine Ratio Glucose POC Glucose 144 H Calculated Osmolality Calcium Magnesium Quality Measures - VTE Contraindication to Pharmacological VTE Prophylaxis: Already on Theraputic Agent , No Prophylaxis Needed
--- NOTE | 2017-01-06 08:00 | Pulmonology Progress Note ---
Pulmonary - PN: Subj Interval history: The patient is an 81-year-old white lady that has a significant cardiomyopathy with chronic atrial fibrillation. She is a diabetic with hypertension and apparently has some dementia. She had respiratory failure and is on the ventilator. She has significant elevation in hepatic enzymes. She is also developed worsening renal failure. She is reasonably stable on the ventilator at present. Her chest x-ray is improving. The patient continues to improve. She is more alert today. She did well on CPAP yesterday. Her vital signs have been stable. Her oxygenation looks much improved. We will try her off the ventilator today Exam (Progress Note) - Constitutional Vitals: Period Temp Pulse Resp BP Sys/Rivero Pulse Ox Last 24 Hr 97.3 F-98.3 F 79-105 8-21 88-111/48-71 97-100 Exam: General appearance: normal weight, no acute distress (She is more alert and responding better now.) - Head Head exam: Present: normal inspection, normocephalic - Eye Eye exam: Present: EOMI. Absent: scleral icterus Pupils: Present: ANCA - ENT ENT exam: Present: other (ET tube in good position) - Neck Neck exam: Absent: lymphadenopathy, thyromegaly - Respiratory Respiratory exam: Present: Her lungs have fairly good breath sounds and she is moving air reasonably well. Her lungs sound clearer overall. - Cardiovascular Cardiovascular exam: Present: irregular rhythm but her heart rate is controlled. Absent: gallop, systolic murmur - GI/Abdominal GI/Abdominal exam: Present: active bowel sounds, soft. Absent: distended, firm , organomegaly, tenderness - Extremities Exam Extremities exam: Present: Her legs are not as swollen and nontender. - Neurological Exam Neurological exam: Present: other (She is arousable and comfortable on the ventilator ) - Psychiatric Psychiatric exam: Absent: anxious - Skin Skin exam: Present: warm, dry, other (She does have some bruises on her extremities) Results - Labs CBC & BMP: 01/06/17 03:07 01/06/17 03:07 Labs: Her PO2 is 152 with a PCO2 of 45 and a pH of 7.5 Assessment and Plan (1) Cardiomyopathy Status: Acute Assessment and plan: The patient apparently has a nonischemic cardiomyopathy with ejection fraction of 20%. She is now on the ventilator at present. Her chest x-ray is better and her CHF is improved. She appears to be hemodynamically stable at present. She is more responsive and looks like she is doing better today. Current Visit: Yes (2) Acute on chronic systolic CHF (congestive heart failure) Status: Acute Assessment and plan: The patient had respiratory distress and is now on the ventilator. Her chest x- ray is improving and her oxygenation is adequate. Current Visit: Yes (3) Acute respiratory failure with hypoxia Status: Acute Assessment and plan: The patient was apparently in respiratory distress and had to be intubated. She is stable on the ventilator and doing CPAP better. She is completely stage IV over weaning trials. Her oxygenation is much better and she is more alert. Will extubate her today. Current Visit: Yes (4) Acute worsening of stage 3 chronic kidney disease Status: Acute Assessment and plan: The patient's creatinine is improving and is down to 1.6. Current Visit: Yes (5) Chronic atrial fibrillation Status: Acute Assessment and plan: The patient's heart rate is under fair control. Her heart rate and blood pressure have been stable. Current Visit: Yes (6) IDDM (insulin dependent diabetes mellitus) Status: Acute Assessment and plan: The patient's glucose was 144 this morning. Current Visit: Yes (7) Dementia Status: Chronic Assessment and plan: Patient reportedly has a history of some dementia. She is arousable and looks like she may be more alert now. Current Visit: No (8) Hypertension Status: Chronic Assessment and plan: The patient has a hypertensive cardiomyopathy and her blood pressure is doing okay at present. Current Visit: No Qualifiers: Hypertension type: essential hypertension Qualified Code(s): I10 - Essential (primary) hypertension (9) Shock liver Status: Acute Assessment and plan: The patient had very elevated liver enzymes and they are coming down nicely now. Current Visit: Yes
[2017-01-06] MEDS: METOPROLOL TARTRATE 25 MG TABLET PO SCH ×2 (08:09→22:17)
[2017-01-06] MEDS: APIXABAN 2.5 MG TABLET PO SCH ×2 (08:09→22:17)
[2017-01-06] MEDS: FUROSEMIDE 40 MG/4 ML VIAL IV SCH ×2 (08:10→16:50)
[2017-01-06] MEDS: SIMBRINZA RIGHT EYE SCH ×2 (08:12→22:27)
[2017-01-06] MEDS: TIMOLOL 0.5% OPH SOLN 5 ML BOTTLE BOTH EYES SCH (08:12)
--- NOTE | 2017-01-06 12:42 | Hospitalist Progress Note ---
Assessment and Plan (1) Acute respiratory failure with hypoxia Status: Acute Assessment and plan: 1)acute respiratory failure- resolved, extubated. 2)leukocytosis- resolved. 3)acute on chronic systolic CHF- BNP now 96. no pulmonary edema or lower extremity edema. 4)chronic afib- amio held because of liver enzyme elevations, rate ok. on dig. 5)ZULAY on CKD- creatinine down to 1.9 good urine output. 6)IDDM- using SSI 7)code status- DNR. transfer to floor in am. Current Visit: Yes (2) Dementia Status: Chronic Current Visit: No (3) Chronic atrial fibrillation Status: Acute Current Visit: Yes (4) IDDM (insulin dependent diabetes mellitus) Status: Acute Current Visit: Yes (5) Acute on chronic systolic CHF (congestive heart failure) Status: Acute Current Visit: Yes (6) Shock liver Status: Acute Current Visit: Yes (7) Acute renal failure superimposed on stage 4 chronic kidney disease Status: Acute Current Visit: Yes (8) Leukocytosis Status: Acute Current Visit: Yes Hospitalist: Subjective Interval history: Mrs Alcala is extubated this morning and doing well so far. She is calm. She has been asking for water. Exam - Constitutional Vitals: Period Temp Pulse Resp BP Sys/Rivero Pulse Ox Last 24 Hr 97.6 F-98.3 F 79-105 8-21 88-111/50-71 97-100 General appearance: normal weight, no acute distress - Head Head exam: Present: normocephalic, atraumatic - Eye Eye exam: Present: EOMI. Absent: scleral icterus - Respiratory Respiratory exam: Present: clear to auscultation bilaterally - Cardiovascular Cardiovascular exam: Present: irregular rhythm - GI/Abdominal GI/Abdominal exam: Present: normal bowel sounds, soft. Absent: tenderness - Extremities Exam Extremities exam: Absent: edema - Neurological Exam Neurological exam: Absent: oriented X3 (wakes to voice, not trying to talk to me but more talkative with he rnurse this morning.) - Skin Skin exam: Present: warm, dry Results - Labs CBC & BMP: 01/06/17 03:07 01/06/17 03:07 Lab Results: I have reviewed the past 24 hour labs Quality Measures - VTE Contraindication to Pharmacological VTE Prophylaxis: Already on Theraputic Agent , No Prophylaxis Needed
[2017-01-06] MEDS: INSULIN GLARGINE 100 UNIT/ML SUBCUT SCH (22:17)
[2017-01-06] MEDS: BIMATOPROST 0.01% OPH SOLN 2.5 ML BOTTLE BOTH EYES SCH (22:26)
[2017-01-07] MEDS: ALBUTEROL/IPRATROPIUM 3 ML NEB RESP TX SCH ×4 (00:21→18:59)
[2017-01-07] MEDS: INSULIN REGULAR 100 UNIT/ML SUBCUT SCH ×4 (01:51→18:29)
[2017-01-07] MEDS: PANTOPRAZOLE 40 MG VIAL IV SCH (04:03)
[2017-01-07 04:58] LABS: Basophils % 0.5 % (0.0-0.8); Eosinophils # 0.1 10*3/uL (0.0-0.87); Eosinophils % 1.2 % (0.00-10.9); Hematocrit 43.6 VOL% (35.7-47.0); Hemoglobin 13.5 GM/DL (12.0-16.0); Immature Granulocytes % 3.2 %; Immature Granulocytes Absolute 0.27 #; Lymphocytes # 1.1 10*3/uL (1.4-4.0); Lymphocytes % 12.7 % (21.3-54.2); Mean Corpuscular Hemoglobin 31 PG (27-34); Mean Corpuscular Volume 100.9 FL (87-102); Mean Platelet Volume 11.8 FL (9.6-12.0); Monocytes # 1.4 10*3/uL (0.11-0.8); Neutrophils # 5.6 10*3/uL (1.4-7.4); Neutrophils % 66.4 % (38.7-73.9); Platelet Count 110 T/CUMM (130-400); Red Blood Count 4.32 MC/CUMM (3.8-5.5); Red Cell Distribution Width 16.8 % (9.3-17.3); White Blood Count 8.5 T/CUMM (4-12)
[2017-01-07 05:21] LABS: Eosinophils 2 % (0-10); Hypochromasia 1+; Lymphocytes 7 % (20-55); Platelet Estimate Decreased; Segmented Neutrophils 78 % (50-85); Total Cells Counted 100
[2017-01-07 05:28] LABS: Magnesium 2.9 MG/DL (1.8-2.4); Phosphorous 4.5 MG/DL (2.5-4.9)
[2017-01-07 05:29] LABS: Calcium 9.2 MG/DL (8.5-10.1); Osmolality,Calculated 322.6 MOS/KG (273-304)
--- NOTE | 2017-01-07 07:03 | Cardiology Progress Note ---
Cardiology - PN: Subj Interval history: Cardiology note 81-year-old woman with cardiomyopathy, chronic atrial fib and respiratory failure. She was extubated yesterday. O2 sat 99 on 3 L. Telemetry shows atrial fib rate in the 80s. Blood pressure 106/83. Irregular rhythm no murmur Decreased breath sounds weak inspiratory effort few basilar rhonchi Abdomen soft benign No leg edema Lab data today White count 8.5 hemoglobin 13.5 hematocrit 43.6 platelet count 110,000 Sodium 153 potassium 4.0 chloride 107 CO2 40 BUN 69 creatinine 1.60 Impression Chronic atrial fibrillation cardiomyopathy EF 20% Respiratory failure Acute renal failure superimposed on chronic renal failure improving. Creatinine 1.60 today. Hypertension diabetes Macrocytic anemia Dementia Plan IV antibiotics Eliquis 2.5 twice daily Metoprolol 25 mg twice daily Encourage nutrition Exam (Progress Note) - Constitutional Vitals: Period Temp Pulse Resp BP Sys/Rivero Pulse Ox Last 24 Hr 96.9 F-97.7 F 79-102 8-25 92-123/45-85 96-100 Result/EKG - Labs CBC & BMP: 01/07/17 04:36 01/07/17 04:36 Labs: Laboratory Results - last 24 hr 01/05/17 01/05/17 01/06/17 19:40 23:45 05:40 WBC RBC Hgb Hct MCV MCH MCHC RDW Plt Count MPV Neut % (Auto) Lymph % (Auto) [place] % (Auto) Eos % (Auto) Baso % (Auto) Neut # (Auto) Lymph # (Auto) [place] # (Auto) Eos # (Auto) Baso # (Auto) Total Counted Immature Gran % Nucleated RBC % Immature Gran # Segmented Neutrophils Lymphocytes Monocytes Eosinophils Nucleated RBCs # Platelet Estimate Hypochromasia Morphology Comment Sodium Potassium Chloride Carbon Dioxide Anion Gap BUN Creatinine GFR Calculation BUN/Creatinine Ratio Glucose POC Glucose 185 H 160 H 144 H Calculated Osmolality Calcium Phosphorus Magnesium Prealbumin 01/07/17 01/07/17 01/07/17 04:36 04:36 04:36 WBC 8.5 RBC 4.32 Hgb 13.5 Hct 43.6 MCV 100.9 MCH 31 MCHC 31.0 L RDW 16.8 Plt Count 110 L MPV 11.8 Neut % (Auto) 66.4 Lymph % (Auto) 12.7 L [place] % (Auto) 16.0 H Eos % (Auto) 1.2 Baso % (Auto) 0.5 Neut # (Auto) 5.6 Lymph # (Auto) 1.1 L [place] # (Auto) 1.4 H Eos # (Auto) 0.1 Baso # (Auto) 0.0 Total Counted 100 Immature Gran % 3.2 Nucleated RBC % 0.0 Immature Gran # 0.27 Segmented Neutrophils 78 Lymphocytes 7 L Monocytes 13 Eosinophils 2 Nucleated RBCs # 0.00 Platelet Estimate Decreased Hypochromasia 1+ Morphology Comment Sodium 153 H Potassium 4.0 Chloride 107 Carbon Dioxide 40 H Anion Gap 10.0 BUN 69 H Creatinine 1.60 H GFR Calculation 31 BUN/Creatinine Ratio 43.00 H Glucose 92 POC Glucose Calculated Osmolality 322.6 H Calcium 9.2 Phosphorus 4.5 Magnesium 2.9 H 3.0 H Prealbumin 17.0 L Quality Measures - VTE Contraindication to Pharmacological VTE Prophylaxis: Already on Theraputic Agent , No Prophylaxis Needed
--- NOTE | 2017-01-07 07:44 | Pulmonology Progress Note ---
Pulmonary - PN: Subj Interval history: The patient is an 81-year-old white lady that has a significant cardiomyopathy with chronic atrial fibrillation. She is a diabetic with hypertension and apparently has some dementia. She had respiratory failure and was on the ventilator. She has significant elevation in hepatic enzymes. She is also developed worsening renal failure. She has continued to do better and yesterday she was extubated. She has done fairly well off the ventilator and is breathing comfortably. She is very weak and not moving around that much. She is responding and has done well with liquids. Overall she is looking better. Exam (Progress Note) - Constitutional Vitals: Period Temp Pulse Resp BP Sys/Rivero Pulse Ox Last 24 Hr 96.9 F-97.7 F 79-102 11-25 100-123/57-85 96-100 Exam: General appearance: normal weight, no acute distress (She is more alert and talking some and looks better.) - Head Head exam: Present: normal inspection, normocephalic - Eye Eye exam: Present: EOMI. Absent: scleral icterus Pupils: Present: ANCA - ENT ENT exam: Present: Unremarkable - Neck Neck exam: Absent: lymphadenopathy, thyromegaly - Respiratory Respiratory exam: Present: Her lungs have fairly good breath sounds and she has only minimal rhonchi. She does have a weak cough. - Cardiovascular Cardiovascular exam: Present: irregular rhythm but her heart rate is controlled. Absent: gallop, systolic murmur - GI/Abdominal GI/Abdominal exam: Present: active bowel sounds, soft. Absent: distended, firm , organomegaly, tenderness - Extremities Exam Extremities exam: Present: Her legs are not as swollen and nontender. - Neurological Exam Neurological exam: Present: other (She is awake and moving around and talking a little better.) - Psychiatric Psychiatric exam: Absent: anxious - Skin Skin exam: Present: warm, dry, other (She does have some bruises on her extremities) Results - Labs CBC & BMP: 01/07/17 04:36 01/07/17 04:36 Assessment and Plan (1) Cardiomyopathy Status: Acute Assessment and plan: The patient apparently has a nonischemic cardiomyopathy with ejection fraction of 20%. She had heart failure along with respiratory failure. She had renal insufficiency and shock liver that has improved. She is now off the ventilator and doing better. She is talking some is comfortable although she is very weak. Current Visit: Yes (2) Acute on chronic systolic CHF (congestive heart failure) Status: Acute Assessment and plan: The patient was on the ventilator with respiratory failure but is doing better now. Her CHF has improved. Current Visit: Yes (3) Acute respiratory failure with hypoxia Status: Acute Assessment and plan: The patient had respiratory failure that is improved. She is doing well off the ventilator. She does not appear to be in distress now. Current Visit: Yes (4) Acute worsening of stage 3 chronic kidney disease Status: Acute Assessment and plan: The patient's creatinine is improving and is down to 1.6. Current Visit: Yes (5) Chronic atrial fibrillation Status: Acute Assessment and plan: The patient's heart rate is under fair control. Her heart rate and blood pressure have been stable. Current Visit: Yes (6) IDDM (insulin dependent diabetes mellitus) Status: Acute Assessment and plan: The patient's glucose was 92 this morning. Current Visit: Yes (7) Dementia Status: Chronic Assessment and plan: Patient reportedly has a history of some dementia. She is talking and alert although she is very weak. Current Visit: No (8) Hypertension Status: Chronic Assessment and plan: The patient has a hypertensive cardiomyopathy and her blood pressure is doing okay at present. She appears to be hemodynamically stable. Current Visit: No Qualifiers: Hypertension type: essential hypertension Qualified Code(s): I10 - Essential (primary) hypertension (9) Shock liver Status: Acute Assessment and plan: The patient had very elevated liver enzymes and they are coming down nicely now. Overall she continues to improve Current Visit: Yes
[2017-01-07] MEDS: APIXABAN 2.5 MG TABLET PO SCH ×2 (09:33→20:58)
[2017-01-07] MEDS: METOPROLOL TARTRATE 25 MG TABLET PO SCH (09:33)
[2017-01-07] MEDS: FUROSEMIDE 40 MG/4 ML VIAL IV SCH (09:33)
[2017-01-07] MEDS: TIMOLOL 0.5% OPH SOLN 5 ML BOTTLE BOTH EYES SCH (09:34)
[2017-01-07] MEDS: SIMBRINZA RIGHT EYE SCH ×2 (09:41→21:00)
--- NOTE | 2017-01-07 11:01 | Hospitalist Progress Note ---
Assessment and Plan (1) Acute respiratory failure with hypoxia Status: Acute Assessment and plan: 1)acute respiratory failure- resolved, extubated. 2)acute on chronic systolic CHF- BNP now 96. no pulmonary edema or lower extremity edema. change lasix to 40mg IV dailiy and consider change to oral tomorrow if she does well. EF 20%. 3)chronic afib- amio held because of liver enzyme elevations, rate ok. on dig. anticoagulated with Eliquis. 4)ZULAY on CKD- creatinine down to 1.6- this is her baseline- acute renal failure resolved. 5)IDDM- using SSI 6)code status- DNR. transfer to floor. Current Visit: Yes (2) Dementia Status: Chronic Current Visit: No (3) Chronic atrial fibrillation Status: Acute Current Visit: Yes (4) IDDM (insulin dependent diabetes mellitus) Status: Acute Current Visit: Yes (5) Acute on chronic systolic CHF (congestive heart failure) Status: Acute Current Visit: Yes (6) Shock liver Status: Acute Current Visit: Yes (7) Acute renal failure superimposed on stage 4 chronic kidney disease Status: Acute Current Visit: Yes (8) Leukocytosis Status: Acute Current Visit: Yes Hospitalist: Subjective Interval history: Mrs Alcala has remained stable off vent since extubation yesterday morning. She is eating a pureed diet as recommended by speech therapy. She denies shortness of breath or pain. Exam - Constitutional Vitals: Period Temp Pulse Resp BP Sys/Rivero Pulse Ox Last 24 Hr 96.9 F-97.7 F 79-99 15-25 100-123/57-85 96-100 General appearance: normal weight, no acute distress - Head Head exam: Present: normocephalic, atraumatic - Eye Eye exam: Present: EOMI. Absent: scleral icterus - Respiratory Respiratory exam: Present: rhonchi (few). Absent: rales, wheezes - Cardiovascular Cardiovascular exam: Present: irregular rhythm. Absent: systolic murmur - GI/Abdominal GI/Abdominal exam: Present: normal bowel sounds, soft. Absent: tenderness - Extremities Exam Extremities exam: Absent: edema - Neurological Exam Neurological exam: Present: alert. Absent: oriented X3 (answers social questions) - Skin Skin exam: Present: warm, dry Results - Labs CBC & BMP: 01/07/17 04:36 01/07/17 04:36 Lab Results: I have reviewed the past 24 hour labs Quality Measures - VTE Contraindication to Pharmacological VTE Prophylaxis: Already on Theraputic Agent , No Prophylaxis Needed
[2017-01-07] MEDS ORDERED: SODIUM CHLORIDE 0.9% 250 ML IV ONE (12:55)
[2017-01-07] MEDS: DESITIN 4OZ/NYSTATIN 15 GRAM MIXTURE PASTE TOP SCH ×2 (15:54→21:07)
[2017-01-07] MEDS: INSULIN GLARGINE 100 UNIT/ML SUBCUT SCH (20:58)
[2017-01-07] MEDS: BIMATOPROST 0.01% OPH SOLN 2.5 ML BOTTLE BOTH EYES SCH (20:59)
[2017-01-08] MEDS: ALBUTEROL/IPRATROPIUM 3 ML NEB RESP TX SCH ×4 (00:22→19:55)
[2017-01-08] MEDS: INSULIN REGULAR 100 UNIT/ML SUBCUT SCH ×4 (02:39→18:02)
[2017-01-08] MEDS: PANTOPRAZOLE 40 MG VIAL IV SCH (04:06)
[2017-01-08 04:47] LABS: Basophils % 0.4 % (0.0-0.8); Eosinophils # 0.5 10*3/uL (0.0-0.87); Eosinophils % 5.2 % (0.00-10.9); Hematocrit 41.2 VOL% (35.7-47.0); Hemoglobin 13.1 GM/DL (12.0-16.0); Immature Granulocytes % 2.4 %; Immature Granulocytes Absolute 0.21 #; Lymphocytes # 1.4 10*3/uL (1.4-4.0); Lymphocytes % 15.6 % (21.3-54.2); Mean Corpuscular HGB Conc 31.8 GM/DL (32-36); Mean Corpuscular Hemoglobin 31 PG (27-34); Mean Corpuscular Volume 97.4 FL (87-102); Mean Platelet Volume 12.7 FL (9.6-12.0); Monocytes % 11.1 % (1.7-12.7); Neutrophils # 5.8 10*3/uL (1.4-7.4); Neutrophils % 65.3 % (38.7-73.9); Platelet Count 107 T/CUMM (130-400); Red Blood Count 4.23 MC/CUMM (3.8-5.5); Red Cell Distribution Width 15.8 % (9.3-17.3); White Blood Count 8.9 T/CUMM (4-12)
[2017-01-08 05:23] LABS: Calcium 9.1 MG/DL (8.5-10.1); Magnesium 2.6 MG/DL (1.8-2.4); Potassium 3.4 MMOL/L (3.5-5.1)
[2017-01-08] MEDS: DEXTROSE 50% 25 GM/50 ML VIAL IV PRN (06:09)
--- NOTE | 2017-01-08 06:19 | XRay Report ---
Exam: XR chest 1V portable Date: 01/08/2017 4:00 AM Indication: CHF Comparison: 01/05/2017 Technical: AP portable Findings: Cardiomegaly present with low volume effusions. There is been interval movement endotracheal tube and nasogastric tube. External cardiac leads are present. Oxygen tubing superimposes exam. No pneumothorax. ASVD present. Impression: 1. Removal of life support tubing 2. Cardiomegaly with low volume left effusion and minimal atelectasis PROCEDURE INTERPRETED AT [facility] DEPARTMENT OF RADIOLOGY Final Report Signed by: Dr. Brett Martínez
--- NOTE | 2017-01-08 07:16 | Cardiology Progress Note ---
Cardiology - PN: Subj Interval history: Cardiology note 81-year-old woman with cardiomyopathy, chronic atrial fib and respiratory failure. O2 sat 98 on 2 L cannula. Telemetry shows atrial fib ventricular rate 60-70 Blood pressure 96/58 Irregular rhythm no murmur Decreased breath sounds with few basilar rhonchi no wheezing Abdomen soft benign No leg edema Lab data today White count 8.9 hemoglobin 13.1 hematocrit 41.2 Sodium 143 potassium 3.4 chloride 100 CO2 37 BUN 50 creatinine 1.10 Magnesium 2.6 Glucose 45 patient received amp of D50 and OJ. Recheck blood sugar was 203. Patient received 32 units of Lantus last night. Impression Chronic atrial fibrillation Cardiomyopathy EF 20% Respiratory failure acute renal failure superimposed on chronic renal failure resolved. Creatinine down to 1.10 today Diabetes Macrocytic anemia Dementia Chronic anticoagulation Plan IV antibiotics Eliquis 2.5 twice daily Metoprolol 25 mg twice daily Pulmonary toilet/nutrition Accu-Cheks every 6 40 mg KCl Exam (Progress Note) - Constitutional Vitals: Period Temp Pulse Resp BP Sys/Rivero Pulse Ox Last 24 Hr 97.3 F-98.4 F 65-93 13-22 84-116/48-76 94-100 Result/EKG - Labs CBC & BMP: 01/08/17 04:17 01/08/17 04:17 Labs: Laboratory Results - last 24 hr 01/06/17 01/06/17 01/07/17 11:40 20:59 01:12 WBC RBC Hgb Hct MCV MCH MCHC RDW Plt Count MPV Neut % (Auto) Lymph % (Auto) [place] % (Auto) Eos % (Auto) Baso % (Auto) Neut # (Auto) Lymph # (Auto) [place] # (Auto) Eos # (Auto) Baso # (Auto) Immature Gran % Nucleated RBC % Immature Gran # Nucleated RBCs # Sodium Potassium Chloride Carbon Dioxide Anion Gap BUN Creatinine GFR Calculation BUN/Creatinine Ratio Glucose POC Glucose 191 H 166 H 120 H Calculated Osmolality Calcium Magnesium 01/07/17 01/07/17 01/07/17 05:49 12:34 17:52 WBC RBC Hgb Hct MCV MCH MCHC RDW Plt Count MPV Neut % (Auto) Lymph % (Auto) [place] % (Auto) Eos % (Auto) Baso % (Auto) Neut # (Auto) Lymph # (Auto) [place] # (Auto) Eos # (Auto) Baso # (Auto) Immature Gran % Nucleated RBC % Immature Gran # Nucleated RBCs # Sodium Potassium Chloride Carbon Dioxide Anion Gap BUN Creatinine GFR Calculation BUN/Creatinine Ratio Glucose POC Glucose 97 202 H 116 H Calculated Osmolality Calcium Magnesium 01/08/17 01/08/17 01/08/17 00:05 04:17 04:17 WBC 8.9 RBC 4.23 Hgb 13.1 Hct 41.2 MCV 97.4 MCH 31 MCHC 31.8 L RDW 15.8 Plt Count 107 L MPV 12.7 H Neut % (Auto) 65.3 Lymph % (Auto) 15.6 L [place] % (Auto) 11.1 Eos % (Auto) 5.2 Baso % (Auto) 0.4 Neut # (Auto) 5.8 Lymph # (Auto) 1.4 [place] # (Auto) 1.0 H Eos # (Auto) 0.5 Baso # (Auto) 0.0 Immature Gran % 2.4 Nucleated RBC % 0.0 Immature Gran # 0.21 Nucleated RBCs # 0.00 Sodium 143 Potassium 3.4 L Chloride 100 Carbon Dioxide 37 H Anion Gap 9.4 BUN 50 H D Creatinine 1.10 H GFR Calculation 49 BUN/Creatinine Ratio 45.00 H Glucose 45 L POC Glucose 87 Calculated Osmolality 294.0 Calcium 9.1 Magnesium 2.6 H 01/08/17 01/08/17 06:07 06:31 WBC RBC Hgb Hct MCV MCH MCHC RDW Plt Count MPV Neut % (Auto) Lymph % (Auto) [place] % (Auto) Eos % (Auto) Baso % (Auto) Neut # (Auto) Lymph # (Auto) [place] # (Auto) Eos # (Auto) Baso # (Auto) Immature Gran % Nucleated RBC % Immature Gran # Nucleated RBCs # Sodium Potassium Chloride Carbon Dioxide Anion Gap BUN Creatinine GFR Calculation BUN/Creatinine Ratio Glucose POC Glucose 44 L* 203 H Calculated Osmolality Calcium Magnesium Quality Measures - VTE Contraindication to Pharmacological VTE Prophylaxis: Already on Theraputic Agent , No Prophylaxis Needed
[2017-01-08] MEDS ORDERED: POTASSIUM CHLORIDE 20 MEQ TABLET PO ONE (08:00)
--- NOTE | 2017-01-08 08:26 | Pulmonology Progress Note ---
Pulmonary - PN: Subj Interval history: The patient is an 81-year-old white lady that has a significant cardiomyopathy with chronic atrial fibrillation. She is a diabetic with hypertension and apparently has some dementia. She had respiratory failure and was on the ventilator. She has significant elevation in hepatic enzymes. She is also developed worsening renal failure. She has continued to do better and was able to come off the ventilator okay. She apparently has dementia and will not talk much. She seems to be resting fairly well and in no respiratory distress. She does not really cough that well. Her chest x-ray shows some minimal atelectasis in the left base now. She has stable vital signs and seems to be breathing okay at present. Exam (Progress Note) - Constitutional Vitals: Period Temp Pulse Resp BP Sys/Rivero Pulse Ox Last 24 Hr 97.3 F-98.4 F 65-93 13-22 84-116/48-76 94-100 Exam: General appearance: normal weight, no acute distress (She arouses easily but will say much. She is in no distress at present.) - Head Head exam: Present: normal inspection, normocephalic - Eye Eye exam: Present: EOMI. Absent: scleral icterus Pupils: Present: ANCA - ENT ENT exam: Present: Unremarkable - Neck Neck exam: Absent: lymphadenopathy, thyromegaly - Respiratory Respiratory exam: Present: Her lungs have equal breath sounds with some mild rhonchi bilaterally. - Cardiovascular Cardiovascular exam: Present: irregular rhythm but her heart rate is controlled. Absent: gallop, systolic murmur - GI/Abdominal GI/Abdominal exam: Present: active bowel sounds, soft. Absent: distended, firm , organomegaly, tenderness - Extremities Exam Extremities exam: Present: Her legs are not as swollen and nontender. - Neurological Exam Neurological exam: Present: other (She is awake and moving around and talking a little better.) - Psychiatric Psychiatric exam: Absent: anxious - Skin Skin exam: Present: warm, dry, other (She does have some bruises on her extremities) Results - Labs CBC & BMP: 01/08/17 04:17 01/08/17 04:17 - Diagnostic Findings Procedure: Chest x-ray: image reviewed by me, report reviewed by me (Chest x- ray shows some minimal atelectasis in the left base.) Assessment and Plan (1) Cardiomyopathy Status: Acute Assessment and plan: The patient apparently has a nonischemic cardiomyopathy with ejection fraction of 20%. She had heart failure along with respiratory failure. She had renal insufficiency and shock liver that has improved. She is hemodynamically stable at present and looks comfortable. Her x-ray is better with less heart failure. Current Visit: Yes (2) Acute on chronic systolic CHF (congestive heart failure) Status: Acute Assessment and plan: The patient was on the ventilator with respiratory failure but is doing better now. She is breathing comfortably on low-flow oxygen. Her CHF has improved. Current Visit: Yes (3) Acute respiratory failure with hypoxia Status: Resolved Assessment and plan: The patient had respiratory failure that is improved. She is doing well off the ventilator. She does not appear to be in distress now. She is extremely weak however and has poor pulmonary toilet. We will continue with respiratory therapy. Current Visit: Yes (4) Acute worsening of stage 3 chronic kidney disease Status: Resolved Assessment and plan: The patient's creatinine is improving and is down to 1.1. Current Visit: Yes (5) Chronic atrial fibrillation Status: Acute Assessment and plan: The patient's heart rate is under fair control. Her heart rate and blood pressure have been stable. Current Visit: Yes (6) IDDM (insulin dependent diabetes mellitus) Status: Acute Assessment and plan: The patient's glucose was 203 this morning. Current Visit: Yes (7) Dementia Status: Chronic Assessment and plan: Patient reportedly has a history of some dementia. She is not talking much and does appear quite weak. Current Visit: No (8) Hypertension Status: Chronic Assessment and plan: The patient has a hypertensive cardiomyopathy and her blood pressure is doing okay at present. She appears to be hemodynamically stable. Current Visit: No Qualifiers: Hypertension type: essential hypertension Qualified Code(s): I10 - Essential (primary) hypertension (9) Shock liver Status: Resolved Assessment and plan: The patient had very elevated liver enzymes and they are coming down nicely now. Overall she continues to improve Current Visit: Yes
[2017-01-08] MEDS ORDERED: FUROSEMIDE 40 MG/4 ML VIAL IV SCH (09:00)
[2017-01-08] MEDS: APIXABAN 2.5 MG TABLET PO SCH ×2 (10:01→20:44)
[2017-01-08] MEDS: TIMOLOL 0.5% OPH SOLN 5 ML BOTTLE BOTH EYES SCH (10:01)
[2017-01-08] MEDS: SIMBRINZA RIGHT EYE SCH ×2 (10:02→20:44)
[2017-01-08] MEDS: DESITIN 4OZ/NYSTATIN 15 GRAM MIXTURE PASTE TOP SCH ×2 (10:03→20:44)
--- NOTE | 2017-01-08 10:15 | Hospitalist Progress Note ---
Assessment and Plan (1) Acute respiratory failure with hypoxia Status: Acute Assessment and plan: 1)acute respiratory failure- resolved, extubated. 2)acute on chronic systolic CHF- BNP now 96. no pulmonary edema or lower extremity edema. lasix stopped for now after BP dip yesterday. Monitor for redevelopment of edema- probably needs lasix at discharge. No BLAKE bc of renal failure and no metoprolol bc of BP. EF 20%. 3)chronic afib- amio held because of liver enzyme elevations, rate ok. on dig. anticoagulated with Eliquis. 4)ZULAY on CKD- creatinine down to 1.6- this is her baseline- acute renal failure resolved. 5)IDDM- using SSI 6)code status- DNR. transfer to floor. Current Visit: Yes (2) Dementia Status: Chronic Current Visit: No (3) Chronic atrial fibrillation Status: Acute Current Visit: Yes (4) IDDM (insulin dependent diabetes mellitus) Status: Acute Current Visit: Yes (5) Acute on chronic systolic CHF (congestive heart failure) Status: Acute Current Visit: Yes (6) Shock liver Status: Resolved Current Visit: Yes (7) Acute renal failure superimposed on stage 4 chronic kidney disease Status: Acute Current Visit: Yes (8) Leukocytosis Status: Acute Current Visit: Yes Hospitalist: Subjective Interval history: Mrs Alcala has been stable in ICU, with improved Bp once metorpolol and lasix held. No new complaints- transfer to floor today. Exam - Constitutional Vitals: Period Temp Pulse Resp BP Sys/Rivero Pulse Ox Last 24 Hr 97.3 F-98.4 F 65-93 13-22 84-116/48-76 94-100 General appearance: normal weight, no acute distress - Head Head exam: Present: normocephalic, atraumatic - Eye Eye exam: Present: EOMI. Absent: scleral icterus - Respiratory Respiratory exam: Present: clear to auscultation bilaterally - Cardiovascular Cardiovascular exam: Present: regular rate and rhythm - GI/Abdominal GI/Abdominal exam: Present: normal bowel sounds, soft. Absent: tenderness - Extremities Exam Extremities exam: Absent: edema Results - Labs CBC & BMP: 01/08/17 04:17 01/08/17 04:17 Lab Results: I have reviewed the past 24 hour labs Quality Measures - VTE Contraindication to Pharmacological VTE Prophylaxis: Already on Theraputic Agent , No Prophylaxis Needed
[2017-01-08] MEDS: BIMATOPROST 0.01% OPH SOLN 2.5 ML BOTTLE BOTH EYES SCH (20:44)
[2017-01-08] MEDS ORDERED: INSULIN GLARGINE 100 UNIT/ML SUBCUT SCH (21:00)
[2017-01-09] MEDS: INSULIN REGULAR 100 UNIT/ML SUBCUT SCH ×5 (00:30→23:26)
[2017-01-09] MEDS: DEXTROSE 50% 25 GM/50 ML VIAL IV PRN ×2 (00:46→23:15)
[2017-01-09] MEDS: ALBUTEROL/IPRATROPIUM 3 ML NEB RESP TX SCH ×4 (01:00→19:22)
[2017-01-09] MEDS: PANTOPRAZOLE 40 MG VIAL IV SCH (03:32)
[2017-01-09] MEDS: APIXABAN 2.5 MG TABLET PO SCH ×2 (08:09→21:11)
[2017-01-09] MEDS: TIMOLOL 0.5% OPH SOLN 5 ML BOTTLE BOTH EYES SCH (08:09)
[2017-01-09] MEDS: SIMBRINZA RIGHT EYE SCH ×2 (08:09→21:11)
--- NOTE | 2017-01-09 08:29 | Hospitalist Progress Note ---
Assessment and Plan - Time spent with patient Time spent with patient: Less than 30 minutes (1) Acute respiratory failure with hypoxia Status: Resolved Assessment and plan: She had acute respiratory failure which is now resolved and she is currently extubated and oxygenating well. Current Visit: Yes (2) Acute on chronic systolic CHF (congestive heart failure) Status: Acute Assessment and plan: She had acute on chronic systolic congestive heart failure with decompensation leading to respiratory failure. She is now improved. Ejection fraction estimated at 20%. She has chronic atrial fibrillation. Her medical regimen is being optimized. Because of her chronic kidney disease she cannot tolerate any BLAKE or arm therapy. Current Visit: Yes (3) Atrial fibrillation Status: Chronic Assessment and plan: She has chronic atrial fibrillation and rate is currently controlled. She is on chronic anticoagulation with Eliquis. Current Visit: No Qualifiers: Atrial fibrillation type: persistent Qualified Code(s): I48.1 - Persistent atrial fibrillation (4) Diabetes mellitus Status: Chronic Assessment and plan: She did have episode of hypoglycemia. We will continue to adjust her regimen to optimize control. Current Visit: No Qualifiers: Diabetes mellitus type: type 2 Chronic kidney disease stage: stage 3 ( moderate) (5) Acute worsening of stage 3 chronic kidney disease Status: Resolved Assessment and plan: Acute worsening of stage III chronic kidney disease has improved and she is apparently at baseline. There were no labs for today. Current Visit: Yes (6) Hypertension Status: Chronic Assessment and plan: Blood pressure well controlled. Continue current regimen. Current Visit: No Qualifiers: Hypertension type: essential hypertension Qualified Code(s): I10 - Essential (primary) hypertension Hospitalist: Subjective Interval history: Patient has been examined and chart is been reviewed. She denies any chest pain or shortness of breath at this time. She inquires on when she can possibly be discharged. Exam - Constitutional Vitals: Period Temp Pulse Resp BP Sys/Rivero Pulse Ox Last 24 Hr 96.7 F-98.8 F 82-104 16-24 96-141/49-85 94-100 General appearance: no acute distress - Head Head exam: Present: normocephalic, atraumatic - Eye Eye exam: Present: EOMI Pupils: Present: ANCA - ENT ENT exam: Present: normal exam - Neck Neck exam: Present: normal inspection - Respiratory Respiratory exam: Present: clear to auscultation bilaterally - Cardiovascular Cardiovascular exam: Present: irregular rhythm - GI/Abdominal GI/Abdominal exam: Present: normal bowel sounds, soft. Absent: tenderness, rebound - Extremities Exam Extremities exam: Absent: calf tenderness, edema - Neurological Exam Neurological exam: Present: alert - Psychiatric Psychiatric exam: Present: normal affect, normal mood - Skin Skin exam: Present: warm. Absent: rash Results - Labs CBC & BMP: 01/08/17 04:17 01/08/17 04:17 Lab Results: I have reviewed the past 24 hour labs Quality Measures - VTE Contraindication to Pharmacological VTE Prophylaxis: Already on Theraputic Agent , No Prophylaxis Needed
[2017-01-09] MEDS: DESITIN 4OZ/NYSTATIN 15 GRAM MIXTURE PASTE TOP SCH ×2 (08:31→21:11)
[2017-01-09] MEDS: POTASSIUM CHLORIDE 20 MEQ TABLET PO SCH (09:37)
--- NOTE | 2017-01-09 10:49 | Pulmonology Progress Note ---
Pulmonary - PN: Subj Interval history: This is a 81-year-old female who was admitted last week with pulmonary edema. She has a cardiomyopathy and she has atrial fib. She was on mechanical ventilation for a while. There is a doubt she was extubated a few days ago and has done fine from a pulmonary standpoint. She has an element of dementia and she is very debilitated. This patient is not talkative. This patient had no complaints and she had no requests. Lab. Glucoses are under good control. Previous lab was reviewed. Medicines reviewed. Physical exam. Vital signs. See below Face. Symmetrical. No swelling of the lips or tongue. Neck. Symmetrical. No meningismus. Chest. Mild large airway congestion Heart. Irregular at 80 bpm Abdomen. Rare bowel sounds Extremities. No edema. Neurologic. Patient is hard of hearing. She has some movement in all 4 extremities. Remainder the physical exam is negative Plan. 1. Continue present regimen. Exam (Progress Note) - Constitutional Vitals: Period Temp Pulse Resp BP Sys/Rivero Pulse Ox Last 24 Hr 96.7 F-98.8 F 82-109 16-22 96-141/49-85 94-100 Results - Labs CBC & BMP: 01/08/17 04:17 01/08/17 04:17
[2017-01-09] MEDS ORDERED: INSULIN GLARGINE 100 UNIT/ML SUBCUT SCH (21:00)
[2017-01-09] MEDS: BIMATOPROST 0.01% OPH SOLN 2.5 ML BOTTLE BOTH EYES SCH (21:11)
[2017-01-10] MEDS: ALBUTEROL/IPRATROPIUM 3 ML NEB RESP TX SCH ×4 (01:30→19:34)
[2017-01-10 03:33] LABS: Basophils # 0.1 10*3/uL (0.0-0.2); Basophils % 0.5 % (0.0-0.8); Eosinophils # 0.2 10*3/uL (0.0-0.87); Eosinophils % 2.6 % (0.00-10.9); Hematocrit 42.4 VOL% (35.7-47.0); Hemoglobin 13.8 GM/DL (12.0-16.0); Immature Granulocytes % 2.8 %; Immature Granulocytes Absolute 0.26 #; Lymphocytes # 1.1 10*3/uL (1.4-4.0); Lymphocytes % 11.8 % (21.3-54.2); Mean Corpuscular HGB Conc 32.5 GM/DL (32-36); Mean Corpuscular Hemoglobin 31 PG (27-34); Mean Corpuscular Volume 95.7 FL (87-102); Mean Platelet Volume 12.4 FL (9.6-12.0); Monocytes % 10.9 % (1.7-12.7); Neutrophils # 6.6 10*3/uL (1.4-7.4); Neutrophils % 71.4 % (38.7-73.9); Platelet Count 103 T/CUMM (130-400); Red Blood Count 4.43 MC/CUMM (3.8-5.5); Red Cell Distribution Width 15.5 % (9.3-17.3); White Blood Count 9.2 T/CUMM (4-12)
[2017-01-10] MEDS: PANTOPRAZOLE 40 MG VIAL IV SCH (03:51)
[2017-01-10 04:22] LABS: Calcium 9.6 MG/DL (8.5-10.1); Osmolality,Calculated 284.3 MOS/KG (273-304); Potassium 3.5 MMOL/L (3.5-5.1)
[2017-01-10] MEDS: INSULIN REGULAR 100 UNIT/ML SUBCUT SCH ×4 (05:08→20:55)
--- NOTE | 2017-01-10 08:42 | Hospitalist Progress Note ---
Assessment and Plan - Time spent with patient Time spent with patient: Less than 30 minutes (1) Acute respiratory failure with hypoxia Status: Resolved Assessment and plan: She had acute respiratory failure which is now resolved and she is currently extubated and oxygenating well. Current Visit: Yes (2) Acute on chronic systolic CHF (congestive heart failure) Status: Acute Assessment and plan: She had acute on chronic systolic congestive heart failure with decompensation leading to respiratory failure. She is now improved. Ejection fraction estimated at 20%. She has chronic atrial fibrillation. Her medical regimen is being optimized. Because of her chronic kidney disease she cannot tolerate any BLAKE or arm therapy. 01/10/17: She currently appears to be well compensated. Will continue current medical therapy with outpatient follow-up at the time of discharge. Current Visit: Yes (3) Atrial fibrillation Status: Chronic Assessment and plan: She has chronic atrial fibrillation and rate is currently controlled. She is on chronic anticoagulation with Eliquis. Current Visit: No Qualifiers: Atrial fibrillation type: persistent Qualified Code(s): I48.1 - Persistent atrial fibrillation (4) Diabetes mellitus Status: Chronic Assessment and plan: She did have another episode of hypoglycemia. We will continue to adjust her regimen to optimize control. Current Visit: No Qualifiers: Diabetes mellitus type: type 2 Chronic kidney disease stage: stage 3 ( moderate) (5) Acute worsening of stage 3 chronic kidney disease Status: Resolved Assessment and plan: Acute worsening of stage III chronic kidney disease has improved and she is apparently at baseline. There were no labs for today. Current Visit: Yes (6) Hypertension Status: Chronic Assessment and plan: Blood pressure well controlled. Continue current regimen. Current Visit: No Qualifiers: Hypertension type: essential hypertension Qualified Code(s): I10 - Essential (primary) hypertension Hospitalist: Subjective Interval history: Patient is doing well today without complaints of chest pain or shortness of breath. She and her daughter in the room and we have had discussion and they plan for possible swing bed placement versus discharge home with home health tomorrow morning. Exam - Constitutional Vitals: Period Temp Pulse Resp BP Sys/Rivero Pulse Ox Last 24 Hr 97.4 F-98.3 F 75-95 12-22 116-128/61-89 95-100 General appearance: no acute distress - Head Head exam: Present: normocephalic, atraumatic - Eye Eye exam: Present: EOMI Pupils: Present: ANCA - ENT ENT exam: Present: normal exam - Neck Neck exam: Present: normal inspection - Respiratory Respiratory exam: Present: clear to auscultation bilaterally. Absent: rales, rhonchi, wheezes - Cardiovascular Cardiovascular exam: Present: irregular rhythm - GI/Abdominal GI/Abdominal exam: Present: normal bowel sounds, soft. Absent: tenderness, rebound - Extremities Exam Extremities exam: Absent: calf tenderness, edema - Back Exam Back exam: Present: normal inspection - Neurological Exam Neurological exam: Present: alert, oriented X3, CN II-XII intact. Absent: motor sensory deficit - Skin Skin exam: Present: warm, dry. Absent: rash Results - Labs CBC & BMP: 01/10/17 03:10 01/10/17 03:10 Lab Results: I have reviewed the past 24 hour labs Quality Measures - VTE Contraindication to Pharmacological VTE Prophylaxis: Already on Theraputic Agent , No Prophylaxis Needed
[2017-01-10] MEDS: DESITIN 4OZ/NYSTATIN 15 GRAM MIXTURE PASTE TOP SCH ×2 (09:06→20:58)
[2017-01-10] MEDS: APIXABAN 2.5 MG TABLET PO SCH ×2 (09:06→20:57)
[2017-01-10] MEDS: TIMOLOL 0.5% OPH SOLN 5 ML BOTTLE BOTH EYES SCH (09:06)
[2017-01-10] MEDS: SIMBRINZA RIGHT EYE SCH ×2 (09:06→20:57)
[2017-01-10] MEDS: POTASSIUM CHLORIDE 20 MEQ TABLET PO SCH (09:06)
--- NOTE | 2017-01-10 13:47 | Pulmonology Progress Note ---
Pulmonary - PN: Subj Interval history: This is a 81-year-old female who was admitted last week with pulmonary edema. She has a cardiomyopathy and she has atrial fib. She was on mechanical ventilation for a while. she was extubated a few days ago and has done fine from a pulmonary standpoint. She has an element of dementia and she is very debilitated. This patient is not talkative. This patient had no complaints and she had no requests. Lab. Glucoses are under good control. Previous lab was reviewed. Medicines reviewed. 01/10/2017. This patient was seen along with her daughter. Patient is doing better and is more comfortable and less short of breath than before. They are looking for swing bed. Electrolytes are normal. Creatinine is 1.20 with a BUN of 32. CBC is stable. There were no new problems overnight and there are no new requests. Overall the patient appears to be slowly improving. Physical exam. Vital signs. See below Face. Symmetrical. No swelling of the lips or tongue. Neck. Symmetrical. No meningismus. Chest. Mild large airway congestion Heart. Irregular at 80 bpm Abdomen. Rare bowel sounds Extremities. No edema. Neurologic. Patient is hard of hearing. She has some movement in all 4 extremities. Remainder the physical exam is negative Plan. 01/09/2017 1. Continue present regimen. 01/10/2017. 1. See my note above. 2. Looking for swing bed Exam (Progress Note) - Constitutional Vitals: Period Temp Pulse Resp BP Sys/Rivero Pulse Ox Last 24 Hr 97.4 F-98.3 F 75-95 12-22 116-128/61-89 95-100 Results - Labs CBC & BMP: 01/10/17 03:10 01/10/17 03:10
[2017-01-10] MEDS: BIMATOPROST 0.01% OPH SOLN 2.5 ML BOTTLE BOTH EYES SCH (20:57)
[2017-01-11] MEDS: ALBUTEROL/IPRATROPIUM 3 ML NEB RESP TX SCH ×3 (00:37→12:33)
[2017-01-11] MEDS: INSULIN REGULAR 100 UNIT/ML SUBCUT SCH (08:04)
[2017-01-11] MEDS: POTASSIUM CHLORIDE 20 MEQ TABLET PO SCH (09:18)
[2017-01-11] MEDS: SIMBRINZA RIGHT EYE SCH (09:18)
[2017-01-11] MEDS: APIXABAN 2.5 MG TABLET PO SCH (09:18)
[2017-01-11] MEDS: TIMOLOL 0.5% OPH SOLN 5 ML BOTTLE BOTH EYES SCH (09:18)
[2017-01-11] MEDS: DESITIN 4OZ/NYSTATIN 15 GRAM MIXTURE PASTE TOP SCH (09:19)
--- NOTE | 2017-01-11 09:36 | Pulmonology Progress Note ---
Pulmonary - PN: Subj Interval history: This 81-year-old white female had congestive heart failure was ventilated. She is off the ventilator now. Starting to talk a little bit. Appears to be stable from pulmonary standpoint. I will sign off. Exam (Progress Note) - Constitutional Vitals: Period Temp Pulse Resp BP Sys/Rivero Pulse Ox Last 24 Hr 97.5 F-98.4 F 61-93 14-22 93-124/52-77 94-100 Exam: Alert and talking but confused. Vital signs normal. Pupils react to light. Throat is clear. Neck supple no bruits. Chest a few rales at the left base otherwise clear. Heart normal rate rhythm no murmurs. Abdomen soft no masses. Extremities no clubbing cyanosis or edema. Calves nontender. Results - Labs CBC & BMP: 01/10/17 03:10 01/10/17 03:10 Lab Results: I have reviewed the past 24 hour labs Assessment and Plan (1) Acute on chronic systolic CHF (congestive heart failure) Status: Acute Assessment and plan: Ejection fraction 20%. Congestive heart failure much improved. Current Visit: Yes (2) Cardiomyopathy Status: Acute Assessment and plan: Nonischemic cardiomyopathy ejection fraction 20%. Underlying cause of her acute on chronic congestive heart failure. Controlled with medications. Current Visit: Yes (3) Acute respiratory failure with hypoxia Status: Acute Assessment and plan: Oxygen saturations acceptable now on room air. We will sign off please call if needed further. Current Visit: Yes
--- NOTE | 2017-01-11 10:02 | Discharge Summary ---
Hospital Course - Hospital Course Hospital Course: 81-year-old white female with a history of chronic atrial fibrillation on chronic anticoagulation also with history of chronic systolic CHF with prior echo revealing ejection fraction of 20%, insulin requiring diabetes mellitus, hypertension, dementia who was transferred from walk-in secondary to respiratory decompensation requiring intubation in the emergency room. She was admitted to the hospitalist service with acute respiratory failure and acute decompensation of CHF. She was diuresed and underwent medical therapy. She was seen by pulmonary as well as cardiology. Venous Dopplers revealed no evidence of DVT, repeat echocardiogram revealed ejection fraction of 15%. Her rhythm remained in atrial fibrillation and rate was controlled. She improved clinically and was ultimately extubated. She was transferred to the floor. She did have several episodes of hypoglycemia and her routine insulin and oral hypoglycemics had to be discontinued and she was placed on Accu-Cheks with sliding scale only. She has been compensated well, is tolerating her diet, rate is controlled and she is oxygenating well on room air only. She has had no further complaints. She did have us some acute worsening of stage III chronic kidney disease during her stay which complicated treatment however this is improved as well. Her creatinine on admission was 3.0 and is improved to 1.2 at this time. She is been evaluated and felt an appropriate candidate for swing bed and will be transferred today. Also of note, she and her power of securities attorney have decided on no heroic measures and she has been made DNR. - Time spent with patient Time with patient DS: Greater than 30 minutes Diagnosis - Discharge Diagnosis (1) Acute respiratory failure with hypoxia Status: Resolved (2) Acute on chronic systolic CHF (congestive heart failure) Status: Acute (3) Atrial fibrillation Status: Chronic (4) Diabetes mellitus Status: Chronic (5) Acute worsening of stage 3 chronic kidney disease Status: Resolved (6) Hypertension Status: Chronic Discharge Plan - Discharge Data Disposition: Swing Bed, [facility] Based, [facility] Pema Condition at Discharge: Stable Discharge Diet: other (Soft cardiac diet) Activity: resume usual activities as tolerated Contact your physician if you experience:: fever over 101, Shortness of breath - Discharge Medications New Dextrose 50% [D50] 25 gm IV PRN PRN vial PRN Reason: Hypoglycemia with IV access Glucagon 1 mg IM PRN PRN vial PRN Reason: Hypoglycemia w/o IV access Lisinopril 2.5 mg PO DAILY #30 tablet Insulin Regular [HumuLIN R] See Protocol SUBCUT ACHS unit Continue Brinzolamide/Brimonidine Tart [Simbrinza] 1 drop RIGHT EYE BID Pantoprazole Tab [Protonix Tab] 40 mg PO DAILY Bimatoprost 0.01% Oph Soln [Lumigan] 1 drop BOTH EYES BEDTIME Apixaban [Eliquis] 2.5 mg PO Q12H Amiodarone Tab [Cordarone Tab] 200 mg PO DAILY Furosemide Tab [Lasix Tab] 40 mg PO DAILY #30 tablet Spironolactone 25 mg PO DAILY Timolol Maleate [Timolol 0.5% Oph Soln] 1 drop BOTH EYES QAM Discontinued Metoprolol Tartrate 25 mg PO BID Sitagliptin Phosphate [Januvia] 50 mg PO DAILY Insulin Glargine [Lantus] 25 unit SUBCUT BEDTIME Levofloxacin Tab [Levaquin Tab] 750 mg PO DAILY #5 tablet - Follow Up or Referral Follow Up: Cardiology - [facility] [Provider Group] - 1 Month PCP, clinic [Other] - 3 Days - Forms/Instructions Additional Discharge Instructions: She will need follow-up electrolytes and renal function in the next 2-3 days with continued optimization of her outpatient medical regimen for her cardiomyopathy. Restart metoprolol 25 mg p.o. twice daily over the next few days if her blood pressure and heart rate allows. Exam - Constitutional Vitals: Period Temp Pulse Resp BP Sys/Rivero Pulse Ox Last 24 Hr 97.5 F-98.4 F 61-93 14-22 93-124/52-77 94-100 General appearance: no acute distress - Head Head exam: Present: normocephalic, atraumatic - Eye Eye exam: Present: EOMI Pupils: Present: ANCA - Respiratory Respiratory exam: Present: clear to auscultation bilaterally. Absent: rales, rhonchi, wheezes - Cardiovascular Cardiovascular exam: Present: irregular rhythm - GI/Abdominal GI/Abdominal exam: Present: normal bowel sounds, soft. Absent: tenderness, rebound - Extremities Exam Extremities exam: Absent: calf tenderness, edema - Back Exam Back exam: Present: normal inspection - Neurological Exam Neurological exam: Present: alert, CN II-XII intact. Absent: motor sensory deficit - Psychiatric Psychiatric exam: Present: normal affect, normal mood. Absent: agitated, anxious - Skin Skin exam: Present: warm, dry. Absent: rash Discharge Results Procedures and tests throughout hospitalization: Pending Orders 01/11/17 09:56 XR chest 1V portable Routine Labs on day of discharge: Labs from last 24 hours 01/11/17 01/11/17 01/10/17 07:37 00:12 20:26 POC Glucose 127 H 101 84 01/10/17 01/10/17 15:31 11:02 POC Glucose 107 H 225 H - Imaging and Cardiology Procedure: Chest x-ray: image reviewed by me DS: Provider Date of admission: 01/02/17 01:34 Primary care physician: . No PCP Attending physician on admission: Karan Palma DO Consults: 01/02/17 01:37 Consult to Physician [CONS] Routine Comment: vent mgmt Consulting Provider: Consult to Specialist Group: Pulmonology When should Consulting Provider be notified: In am 01/02/17 05:39 Consult to Dietitian [CONS] Routine Reason for Dietitian: TF-Initiate/Manage 01/03/17 10:24 Consult to Pharmacy [CONS] Routine Reason for Pharmacy Consult: Dose/Manage Antibiotics 01/06/17 08:53 Consult to Physical Therapy [CONS] Routine Reason for Physical Therapy: Weakness 01/09/17 08:37 Consult to Case Mgmt/Social Srvs [CONS] Routine Reason for Case Mgmt/Social Srvs: Swingbed/SNF/[facility] 01/09/17 16:35 PT [Consult to Physical Therapy] [CONS] Routine Reason for Physical Therapy: Evaluate and Treat Discharging clinician: Blaire House Expected date of discharge: 01/11/17
--- NOTE | 2017-01-11 11:15 | XRay Report ---
XR chest 1V portable Indication: Acute respiratory failure Comparison: Chest x-ray 01/08/2017 Technique: Portable AP chest was performed. Findings: Heart size remains minimally enlarged. Improved aeration of the left lung base is noted. Fine reticular interstitial markings remain present bilaterally and within the left cardiophrenic angle airspace stranding remains present. Bones and soft tissues demonstrate no significant interval change. Impression: 1. Improving appearance of the left lung base suggests improving infection, edema, or atelectasis. Small amount pleural fluid on the left is not excluded. 01/11/2017 11:12 AM PROCEDURE INTERPRETED AT [facility] DEPARTMENT OF RADIOLOGY Final Report Signed by: Dr. Dorian Sanders
[2017-01-11 11:27] VITALS: BP 119/61
--- NOTE | 2017-01-11 20:19 | Cardiology Progress Note ---
Tobin Valenzuela Vanessa, RN, am scribing for, and in the presence of, Anuj Linares MD 20:16. Assessment and Plan - Time spent with patient Time spent with patient: Greater than 30 minutes (1) Acute on chronic systolic CHF (congestive heart failure) Status: Chronic Assessment and plan: 01/11/17 ASSESSMENT/PLAN: 1. ATRIAL FIBRILLATION -chronic. Ventricular response has been well controlled. Continue low-dose Eliquis for stroke prevention. Amiodarone 200 mg by mouth daily is being continued at discharge 2. CONGESTIVE HEART FAILURE -acute on chronic systolic congestive heart failure with severely reduced ejection fraction 15% per echocardiogram this admission. Lasix 40 mg by mouth daily and Spironolactone 25 mg by mouth daily being continued at discharge. Continue low-dose BLAKE inhibitor. 3. HYPERTENSION -chronic. Stable. Continue as present upon discharge. 4. CARDIOMYOPATHY -nonischemic. She is not exhibiting overt signs or symptoms of heart failure at this time, and appears to be fairly well compensated. Continue Spironolactone, BLAKE inhibitor. 5. RESPIRATORY FAILURE -hypoxia and acute respiratory failure upon admission requiring intubation and mechanical ventilation. Clinically, she has improved after diuresis and treatment for CHF. 6. ACUTE WORSENING OF STAGE 3 KIDNEY DISEASE -improved. Creatinine of 3.0 upon admission, and since admission creatinine has trended down to 1.2. (2) Acute respiratory failure with hypoxia Status: Resolved (3) Cardiomyopathy Status: Chronic (4) Chronic atrial fibrillation Status: Chronic (5) IDDM (insulin dependent diabetes mellitus) Status: Chronic Cardiology - PN: Subj Interval history: PRIMARY TERRITORY SUPERVISOR: DR. BOWEN SUMMARY: Ms. Alcala is a 81-year-old female with past medical history of chronic atrial fibrillation on anticoagulation, nonischemic cardiomyopathy with ejection fraction 15%, moderate mitral regurgitation, diabetes, hypertension, and dementia. Patient was admitted on January 01 after transfer from [facility] where she was being treated for weakness and persistent nausea and vomiting. After arrival to [facility], she experienced hypoxia with acute respiratory failure, and she also had worsening of stage III kidney disease. Patient did require intubation, and since that time, she has been treated for acute on chronic systolic congestive heart failure secondary to severely reduced ejection fraction of 15%. Atrial fibrillation has had well-controlled ventricular response. On admission, creatinine was 3.0, and has since improved. January: Ms. Alcala is awake and alert this morning, and she is in no acute distress. No chest pain or shortness of breath. She is not requiring supplemental oxygen. Afebrile today, and systolic BP ranging 115-125 mmHg. Creatinine yesterday 1.2. Electrolytes within acceptable range. Patient has been accepted for swing bed placement, and she is to be transferred there today. Exam (Progress Note) - Constitutional Vitals: Period Temp Pulse Resp BP Sys/Rivero Pulse Ox Last 24 Hr 97.5 F-98.4 F 61-93 14-22 93-124/52-77 94-100 General appearance: no acute distress - Head Head exam: Present: atraumatic. Absent: abrasion, contusion - Eye Eye exam: Present: EOMI. Absent: periorbital swelling, scleral icterus Pupils: Present: ANCA. Absent: dilated, fixed - ENT ENT exam: Present: normal external ear exam - Neck Neck exam: Present: normal inspection. Absent: tenderness - Respiratory Respiratory exam: Present: clear to auscultation bilaterally. Absent: decreased breath sounds, rales, rhonchi, stridor, wheezes - Cardiovascular Cardiovascular exam: Present: irregular rhythm. Absent: bradycardia, JVD, systolic murmur, tachycardia - GI/Abdominal GI/Abdominal exam: Present: normal bowel sounds, soft. Absent: ascites, distended, firm, mass, tenderness - Extremities Exam Extremities exam: Present: normal inspection, normal capillary refill. Absent: full ROM, calf tenderness - Neurological Exam Neurological exam: Present: alert. Absent: motor sensory deficit - Psychiatric Psychiatric exam: Present: normal affect, normal mood. Absent: agitated, anxious, depressed, flat affect - Skin Skin exam: Present: normal color, warm, dry, intact. Absent: abrasion, cyanosis , petechiae, rash Result/EKG - Labs CBC & BMP: 01/10/17 03:10 01/10/17 03:10 Lab Results: I have reviewed the past 24 hour labs Labs: Laboratory Results - last 24 hr 01/10/17 01/10/17 01/11/17 15:31 20:26 00:12 POC Glucose 107 H 84 101 01/11/17 01/11/17 07:37 10:47 POC Glucose 127 H 220 H - EKG EKG results: interpreted by me, no acute changes EKG shows: atrial fibrillation Quality Measures - VTE Contraindication to Pharmacological VTE Prophylaxis: Already on Theraputic Agent , No Prophylaxis Needed Specialty Discharge - Follow Up or Referrals Follow up with: PCP, clinic [Other] - 3 Days Cardiology - [facility] [Provider Group] - 02/11/17 8:20 am Patti Bowen DO [Physician] - (Keep appointment or to have a appointment set up in March, as was to have been scheduled when the patient saw Dr. Dye 6 months ago. If there is no call by early March, she is to call the office at [facility] to set it up.) I, Anuj Linares MD, personally performed the services described in this documentation, ascribed by Jolynn Rudd RN in my presence, and it is both accurate and complete .
== END 2017-01-11 14:20 | disposition swing bed (61) | DRG 207 ==
LOC: EDBD → EDUNIT# → N.ED 00:45 → N.EDINP 01:34 → SUATTDRO 01:34 → N.CC 01:59 → N.ICU 01-06 17:49 → N.4E 01-08 11:40
PROVIDERS: ADMIT Internal Medicine; ATTEND Hospitalist